=== PATIENT | male | born 1955 | race Caucasian/White ===

== ENCOUNTER 2019-08-12 08:56 | Day surgery (SDC) | payer MEDICARE, OTHER ==
[~2019-08-12 08:56] MED LIST: Lactated Ringers 1,000 ML IV SCH; Lidocaine 2% 5 ML SDV ONE; Propofol 200 MG/20 ML SDV ONE; fentaNYL 100 MCG/2 ML SDV ONE
--- NOTE | 2019-08-12 09:34 | PCM.PREANE ---
Preanesthetic Assessment - Anesthesia/Transfusion/Family Hx Anesthesia History: Prior Anesthesia Without Reaction Family History of Anesthesia Reaction: No Transfusion History: No Prior Transfusion(s) Intubation History: Unknown - Review of Systems General: No Symptoms Pulmonary: No Symptoms Cardiovascular: No Symptoms Gastrointestinal: Constipation, Other (rectal mass) Neurological: No Symptoms Other: Reports: None - Physical Assessment Vital Signs: Last Vital Signs Temp 36.5 C 08/12/19 09:00 Pulse 79 08/12/19 09:00 Resp 18 08/12/19 09:00 BP 126/94 H 08/12/19 09:00 Pulse Ox 97 08/12/19 09:00 Height: 6 ft Weight: 126.552 kg ASA Class: 3 Airway Class: Mallampati = 2 Dentition: Reports: Bridge (upper (left to right - removed)) Thyro-Mental Finger Breadths: 3 Mouth Opening Finger Breadths: 3 ROM/Head Extension: Full Lungs: Clear to Auscultation, Normal Respiratory Effort Cardiovascular: Regular Rate, Irregular Rhythm - Allergies Allergies/Adverse Reactions: Allergies Allergy/AdvReac Type Severity Reaction Status Date / Time shrimp Allergy Hives Verified 08/07/19 13:55 - Blood Blood Available: No - Anesthesia Plan Pre-Op Medication Ordered: None - Acknowledgements Anesthesia Type Planned: MAC Pt an Appropriate Candidate for the Planned Anesthesia: Yes Alternatives and Risks of Anesthesia Discussed w Pt/Guardian: Yes Pt/Guardian Understands and Agrees with Anesthesia Plan: Yes PreAnesthesia Questionnaire HEENT History: Reports: Impaired Vision, Other (See Below) Other HEENT History: top partial, glasses Cardiovascular History: Reports: Afib (cardioversion x4 10 years ago, in [place] [facility] 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: Musculoskeletal History: Reports: Fracture, Osteoarthritis, Other (See Below) Other Musculoskeletal History: hx fx collarbone, hand Neurological History: Reports: None Psychiatric History: Reports: None Endocrine/Metabolic History: Reports: Obesity/BMI 30+ (BMI 37.8) Hematologic History: Reports: None Immunologic History: Reports: None Oncologic (Cancer) History: Reports: None Dermatologic History: Reports: None - Past Surgical History Head Surgeries/Procedures: Reports: None HEENT Surgical History: Reports: Naso-Sinus Surgery, Tonsillectomy Cardiovascular Surgical History: Reports: Other (See Below) Other Cardiovascular Surgeries/Procedures: cardioversion x4 Respiratory Surgical History: Reports: None GI Surgical History: Reports: Appendectomy Female Surgical History: Male Surgical History: Reports: None Endocrine Surgical History: Reports: None Neurological Surgical History: Reports: None Musculoskeletal Surgical History: Reports: Carpal Tunnel, Knee Replacement ( left knee TKR 4 months ago in [facility]) Oncologic Surgical History: Reports: None Dermatological Surgical History: Reports: None - History Comment History Comment: no xarelto sat and saturday - SUBSTANCE USE Smoking Status *Q: Never Smoker Recreational Drug Use History: No - HOME MEDS Home Medications: Home Meds Amiodarone [Cordarone] 200 mg PO DAILY 03/20/19 [History] Rivaroxaban [Xarelto] 20 mg PO DAILY 03/20/19 [History] Triamterene/Hydrochlorothiazid [Triamterene-HCTZ 37.5-25 MG] 1 cap PO DAILY [History] amLODIPine Besylate [Norvasc] 10 mg PO DAILY 03/24/19 [History] Quinapril HCl [Accupril] 40 mg PO BID 08/07/19 [History] - CURRENT (IN HOUSE) MEDS Current Meds: Current Medications Lactated Ringer's (Ringers, Lactated) 1,000 mls @ 125 mls/hr IV ASDIRECTED [facility] Last Admin: 08/12/19 09:27 Dose: 125 mls/hr Discontinued Medications Fentanyl (Sublimaze) Confirm Administered Dose 100 mcg .ROUTE .STK-MED ONE Stop: 08/12/19 08:36 Lidocaine (Xylocaine-Mpf 2%) Confirm Administered Dose 5 ml .ROUTE .STK-MED ONE Stop: 08/12/19 08:36 Propofol (Diprivan 20 Ml) Confirm Administered Dose 400 mg .ROUTE .STK-MED ONE Stop: 08/12/19 08:36
[2019-08-12] MEDS ORDERED: Ampicillin 1 GM in Sodium Chloride 0.9% 50 ML IV ONE ×7 (10:45→11:00)
[2019-08-12] MEDS ORDERED: Propofol 200 MG/20 ML SDV ONE ×2 (12:01→12:25)
--- NOTE | 2019-08-12 12:45 | PCM.OPNOTE ---
- General Post-Op/Procedure Note Date of Surgery/Procedure: 08/12/19 Operative Procedure(s): colonoscopy w snare polypectomy, and tattoo Findings: see [id number] Pre Op Diagnosis: rectal mass Post-Op Diagnosis: Same Anesthesia Technique: Moderate Sedation Primary Surgeon: Sergio Mccauley Pathology: 120 cm when scope went out, 4 mm sessile polyp, removed w cold bx forcept; 10mm rectal polyp, tattoo, probably above 5 cm from anal opening Complications: None Condition: Good
--- NOTE | 2019-08-12 12:57 | PCM.POSTAN ---
POST ANESTHESIA ASSESSMENT - MENTAL STATUS Mental Status: Alert, Oriented - VITAL SIGNS Vital Signs: Last Vital Signs Temp 36.5 C 08/12/19 09:00 Pulse 67 08/12/19 12:49 Resp 12 08/12/19 12:49 BP 133/88 08/12/19 12:49 Pulse Ox 95 08/12/19 12:49 - RESPIRATORY Respiratory Status: Respiratory Rate WNL, Airway Patent, O2 Saturation Stable - CARDIOVASCULAR CV Status: Pulse Rate WNL, Blood Pressure Stable - GASTROINTESTINAL GI Status: No Symptoms - PAIN Pain Score: 0 - POST OP HYDRATION Hydration Status: Adequate & Stable - OBSERVATIONS Free Text/Narrative:: No anesthesia problems
--- NOTE | 2019-08-12 13:18 | PCM48HPAN ---
Post Anesthesia Note - EVALUATION WITHIN 48HRS OF ANESTHETIC Vital Signs in Normal Range: Yes Patient Participated in Evaluation: Yes Respiratory Function Stable: Yes Airway Patent: Yes Cardiovascular Function Stable: Yes Hydration Status Stable: Yes Pain Control Satisfactory: Yes Nausea and Vomiting Control Satisfactory: Yes Mental Status Recovered: Yes Vital Signs: Last Vital Signs Temp 36.2 C 08/12/19 13:03 Pulse 62 08/12/19 13:03 Resp 16 08/12/19 13:03 BP 124/74 08/12/19 13:03 Pulse Ox 95 08/12/19 12:53 - COMMENTS/OBSERVATIONS Free Text/Narrative:: No anesthesia problems
--- NOTE | 2019-08-12 17:46 | OR ---
SURGEON: Sergio Mccauley MD DATE OF PROCEDURE: 08/12/2019 PREOPERATIVE DIAGNOSES: Change in bowel habit and possible rectal mass. POSTOPERATIVE DIAGNOSIS: Colon polyp. PROCEDURE PERFORMED: Colonoscopy with snare polypectomy. DESCRIPTION OF PROCEDURE: The patient was taken to the endoscopy room. A time out was called, patient identified, and procedure identified. Diprivan was then administrated. Patient went from awake to sleep, hearing doctor talking or door closing is normal. Perineum inspection and digital examination were then performed. A well- lubricated colonoscope was gently inserted through the rectum, advanced past the rectosigmoid junction, the descending colon, splenic flexure, transverse colon, hepatic flexure, ascending colon, arrived to the cecum. Cecum was identified as dictated in the finding. Then the scope was carefully withdrawn while attention was paid to the mucosal surface for any abnormality. Air will be sucked out during the scope withdrawal. At the rectum, retroflexed to examine any rectal diseases, fistula or hemorrhoids. During mucosal examination, abnormality or polyp encountered. Using snare equipment, the abnormality or the polyp was then snared off using electrocautery. The patient tolerated procedure well. There were no intraoperative complications, and Dr. Mccauley was present throughout the whole procedure. FINDINGS: 1. The patient is easily sedated with SWEATBAND FLANGER and Diprivan, the patient is soundly snoring. 2. The patient's bowel prep is average to above average, very little liquid stool, no semi-formed stool. 3. The patient's colon rather straightforward. Cecum indicated by ileocecal fold, one-to-one indentation, appendiceal orifice. ScopeGuide is pointing south. Light emittance is not observed because of body habitus. Mucosa examined upon scope pulling out with some irrigation. The patient has a small tiny polyp, about 3 to 4 mm, sessile polyp, at distance 1.2 m while scope pulling out and was removed with cold biopsy forceps. The patient has a semi-moderate size polyp, pedunculated, close to the rectum, probably more than 5 cm from the anal opening, and it was snared and sent for pathology. It is about 10 mm in size, smooth-walled. Other than that, no diverticulosis other mass, growth, inflammation, stricture, ulceration, AV malformation, none of those. The patient has mild internal hemorrhoids, no external hemorrhoids. The patient would benefit from repeat colonoscopy 18 months from today because of the size of the polyp is not too small and the polypectomy site has been tattooed. JAYLENE / ADI /[id number]
== END 2019-08-12 13:25 | disposition home or self-care (01) ==
LOC: MW.SDS 08:56
PROVIDERS: ATTEND Surgery
DX: D12.8 Benign neoplasm of rectum (principal); K64.8 Other hemorrhoids; K63.5 Polyp of colon; I10 Essential (primary) hypertension; E66.9 Obesity, unspecified; E78.00 Pure hypercholesterolemia, unspecified; Z91.09 Other allergy status, other than to drugs and biological substances; Z79.899 Other long term (current) drug therapy; Z79.01 Long term (current) use of anticoagulants; Z90.49 Acquired absence of other specified parts of digestive tract; Z68.37 Body mass index [BMI] 37.0-37.9, adult
CPT/HCPCS: 45380; 45385; 88305; 93005; J0290; J2001; J2704; J3010; J7050; J7120

== ENCOUNTER 2019-08-15 20:42 | Observation (INO) | payer MEDICARE, OTHER ==
[2019-08-15] MEDS ORDERED: Sodium Chloride 0.9% 1,000 ML IV ONE (21:20)
[2019-08-15 21:42] LABS: CARBON DIOXIDE,CO2 28.2 mmol/L (21.0-32.0); POTASSIUM,K 3.6 mmol/L (3.5-5.1)
--- NOTE | 2019-08-16 00:40 | EDM.PDOC ---
ED HPI GENERAL MEDICAL PROBLEM - General Chief Complaint: Gastrointestinal Problem Stated Complaint: bledding in the rectal Time Seen by Provider: 08/15/19 21:04 Source of Information: Reports: Patient History Limitations: Reports: No Limitations - Related Data Allergies Allergy/AdvReac Type Severity Reaction Status Date / Time shrimp Allergy Hives Verified 08/15/19 20:48 Home Meds: Home Meds Amiodarone [Cordarone] 200 mg PO DAILY 03/20/19 [History] Rivaroxaban [Xarelto] 20 mg PO DAILY 03/20/19 [History] Triamterene/Hydrochlorothiazid [Triamterene-HCTZ 37.5-25 MG] 1 cap PO DAILY [History] amLODIPine Besylate [Norvasc] 10 mg PO DAILY 03/24/19 [History] Quinapril HCl [Accupril] 40 mg PO BID 08/07/19 [History] Past Medical History HEENT History: Reports: Impaired Vision, Other (See Below) Other HEENT History: top partial, glasses Cardiovascular History: Reports: Afib, High Cholesterol, Hypertension Respiratory History: Reports: None Gastrointestinal History: Reports: Other (See Below) Other Gastrointestinal History: occasional heartburn 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 History: Reports: 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: Musculoskeletal History: Reports: Fracture, Osteoarthritis, Other (See Below) Other Musculoskeletal History: hx fx collarbone, hand Neurological History: Reports: None Psychiatric History: Reports: None Endocrine/Metabolic History: Reports: Obesity/BMI 30+ Hematologic History: Reports: None Immunologic History: Reports: None Oncologic (Cancer) History: Reports: None Dermatologic History: Reports: None - Infectious Disease History Infectious Disease History: Reports: Chicken Pox, Measles, Mumps - Past Surgical History Head Surgeries/Procedures: Reports: None HEENT Surgical History: Reports: Naso-Sinus Surgery, Tonsillectomy Cardiovascular Surgical History: Reports: Other (See Below) Other Cardiovascular Surgeries/Procedures: cardioversion x4 Respiratory Surgical History: Reports: None GI Surgical History: Reports: Appendectomy Male Surgical History: Reports: None Endocrine Surgical History: Reports: None Neurological Surgical History: Reports: None Musculoskeletal Surgical History: Reports: Carpal Tunnel, Knee Replacement Oncologic Surgical History: Reports: None Dermatological Surgical History: Reports: None - History Comment History Comment: no xarelto sat and saturday Social & Family History - Family History Family Medical History: Noncontributory - Tobacco Use Smoking Status *Q: Never Smoker - Caffeine Use Caffeine Use: Reports: Coffee - Recreational Drug Use Recreational Drug Use: No ED ROS GENERAL - Review of Systems Review Of Systems: See Below ED EXAM, GI/ABD - Physical Exam Exam: See Below Exam Limited By: No Limitations General Appearance: Alert, WD/WN, No Apparent Distress Eyes: Bilateral: Normal Appearance Ears: Normal External Exam, Normal Canal, Hearing Grossly Normal, Normal TMs Nose: Normal Inspection Throat/Mouth: Normal Inspection, Normal Lips Head: Atraumatic Neck: Normal Inspection, Supple, Non-Tender Respiratory/Chest: No Respiratory Distress, Lungs Clear, No Accessory Muscle Use , Chest Non-Tender Cardiovascular: Normal Peripheral Pulses, Regular Rate, Rhythm, No JVD, No Murmur GI/Abdominal Exam: Normal Bowel Sounds, Soft, Non-Tender, No Distention, No Abnormal Bruit (Male) Exam: No Hernia Rectal (Males) Exam: Normal Exam, Normal Rectal Tone, Bloody Stool, Heme + Stool Back Exam: Normal Inspection, Full Range of Motion Extremities: Normal Inspection, Normal Range of Motion, No Pedal Edema, Normal Capillary Refill Neurological: Alert, Oriented, CN II-XII Intact, Normal Cognition, Normal Reflexes, No Motor/Sensory Deficits Psychiatric: Normal Affect, Normal Mood Skin Exam: Warm, Dry, Intact, Normal Color Course - Vital Signs Text/Narrative:: 63-year-old gentleman presents the emergency room with bright red bleeding per rectum. Patient is status post colonoscopy 4 days ago which she had a lesion taken from his descending colon and another polyp taken higher up. Patient states today he had bleeding on every hour. Patient was on Xarelto his just started it again. Patient denies any abdominal ppain. The patient has abdominal pain generalized. Patient has negative tenderness. Patient does have positive rectal exam with blood on the glove minimal. Patient in no distress with good blood pressure and vital signs. Patient had orthostatic vitals done which were negative. I discussed the case with Dr. Mccauley. The patient could be stable for discharge if the patient feels any apprehensive he will keep him in the hospital. After patient had been evaluated and watched for over 2 hours patient's blood pressure remains the same patient hemoglobin has dropped from 15-13. Patient feels that he is not not stable to leave the hospital because his bleeding every other hour. Dr. Mccauley informed of this and will keep the patient in observation Diagnosis 1 acute rectal bleed status post colonoscopy removal of polyps HE will be admitted and monitored in the hospital/observation Last Recorded V/S: Last Vital Signs Temp 96.9 F 08/15/19 20:49 Pulse 89 08/16/19 00:22 Resp 17 08/16/19 00:22 BP 150/94 H 08/16/19 00:22 Pulse Ox 94 L 08/16/19 00:22 Orthostatic Blood Pressure [ 147/83 Standing] Orthostatic Blood Pressure [ 153/88 Sitting] Orthostatic Blood Pressure [ 148/85 Supine] - Orders/Labs/Meds Orders: Active Orders 24 hr Category Date Time Status Orthostatic Vital Signs [RC] ASDIRECTED Care 08/15/19 22:21 Active Labs: Laboratory Tests 08/15/19 08/15/19 08/15/19 Range/Units 21:05 21:05 21:05 WBC 9.36 (4.0-11.0) K/uL RBC 5.46 (4.50-5.90) M/uL Hgb 15.8 (13.0-17.0) g/dL Hct 47.8 (38.0-50.0) % MCV 87.5 (80.0-98.0) fL MCH 28.9 (27.0-32.0) pg MCHC 33.1 (31.0-37.0) g/dL RDW Std Deviation 47.7 (28.0-62.0) fl RDW Coeff of Evaristo 15 (11.0-15.0) % Plt Count 351 (150-400) K/uL MPV 11.10 (7.40-12.00) fL Neut % (Auto) 59.4 (48.0-80.0) % Lymph % (Auto) 28.2 (16.0-40.0) % Reynolds % (Auto) 9.6 (0.0-15.0) % Eos % (Auto) 2.5 (0.0-7.0) % Baso % (Auto) 0.3 (0.0-1.5) % Neut # (Auto) 5.6 (1.4-5.7) K/uL Lymph # (Auto) 2.6 H (0.6-2.4) K/uL Reynolds # (Auto) 0.9 H (0.0-0.8) K/uL Eos # (Auto) 0.2 (0.0-0.7) K/uL Baso # (Auto) 0.0 (0.0-0.1) K/uL Nucleated RBC % 0.0 /100WBC Nucleated RBCs # 0 K/uL INR 1.10 Sodium 144 (136-148) mmol/L Potassium 3.6 (3.5-5.1) mmol/L Chloride 105 (98-107) mmol/L Carbon Dioxide 28.2 (21.0-32.0) mmol/L BUN 15 (7.0-18.0) mg/dL Creatinine 1.7 H (0.8-1.3) mg/dL Est Cr Clr Drug Dosing 47.55 mL/min Estimated GFR (MDRD) 40.7 ml/min Glucose 114 H (74-106) mg/dL Calcium 9.0 (8.5-10.1) mg/dL Total Bilirubin 0.3 (0.2-1.0) mg/dL AST 22 (15-37) IU/L ALT 47 (14-63) IU/L Alkaline Phosphatase 83 (46-116) U/L Total Protein 7.4 (6.4-8.2) g/dL Albumin 3.8 (3.4-5.0) g/dL Globulin 3.6 (2.6-4.0) g/dL Albumin/Globulin Ratio 1.1 (0.9-1.6) 08/15/19 Range/Units 23:43 WBC 9.46 (4.0-11.0) K/uL RBC 4.81 (4.50-5.90) M/uL Hgb 13.8 (13.0-17.0) g/dL Hct 42.5 (38.0-50.0) % MCV 88.4 (80.0-98.0) fL MCH 28.7 (27.0-32.0) pg MCHC 32.5 (31.0-37.0) g/dL RDW Std Deviation 47.9 (28.0-62.0) fl RDW Coeff of Evaristo 15 (11.0-15.0) % Plt Count 303 (150-400) K/uL MPV 10.70 (7.40-12.00) fL Neut % (Auto) 74.8 (48.0-80.0) % Lymph % (Auto) 14.1 L (16.0-40.0) % Reynolds % (Auto) 9.6 (0.0-15.0) % Eos % (Auto) 1.3 (0.0-7.0) % Baso % (Auto) 0.2 (0.0-1.5) % Neut # (Auto) 7.1 H (1.4-5.7) K/uL Lymph # (Auto) 1.3 (0.6-2.4) K/uL Reynolds # (Auto) 0.9 H (0.0-0.8) K/uL Eos # (Auto) 0.1 (0.0-0.7) K/uL Baso # (Auto) 0.0 (0.0-0.1) K/uL Nucleated RBC % 0.0 /100WBC Nucleated RBCs # 0 K/uL INR Sodium (136-148) mmol/L Potassium (3.5-5.1) mmol/L Chloride (98-107) mmol/L Carbon Dioxide (21.0-32.0) mmol/L BUN (7.0-18.0) mg/dL Creatinine (0.8-1.3) mg/dL Est Cr Clr Drug Dosing mL/min Estimated GFR (MDRD) ml/min Glucose (74-106) mg/dL Calcium (8.5-10.1) mg/dL Total Bilirubin (0.2-1.0) mg/dL AST (15-37) IU/L ALT (14-63) IU/L Alkaline Phosphatase (46-116) U/L Total Protein (6.4-8.2) g/dL Albumin (3.4-5.0) g/dL Globulin (2.6-4.0) g/dL Albumin/Globulin Ratio (0.9-1.6) Meds: Medications Discontinued Medications Generic Name Dose Route Start Last Admin Trade Name Freq PRN Reason Stop Dose Admin Sodium Chloride 1,000 mls @ 1,000 mls/hr 08/15/19 21:20 08/15/19 21:33 Normal Saline IV 08/15/19 22:19 1,000 mls/hr .Bolus ONE Administration Departure - Departure Time of Disposition: 00:48 Disposition: Refer to Observation Condition: Good Clinical Impression: Rectal bleeding - Discharge Information Referrals: Blair Palacios MD [Primary Care Provider] - Sepsis Event Note - Evaluation Sepsis Screening Result: No Definite Risk - Focused Exam Vital Signs: Vital Signs Temp Pulse Resp BP Pulse Ox 08/16/19 00:22 89 17 150/94 H 94 L 08/15/19 20:49 96.9 F 91 18 159/93 H 96 Date Exam was Performed: 08/16/19 Time Exam was Performed: 00:35 - My Orders Last 24 Hours: My Active Orders 08/15/19 22:21 Orthostatic Vital Signs [RC] ASDIRECTED - Assessment/Plan Last 24 Hours: My Active Orders 08/15/19 22:21 Orthostatic Vital Signs [RC] ASDIRECTED
[2019-08-16] MEDS: Lactated Ringers 1,000 ML IV SCH ×3 (02:03→21:30)
[2019-08-16] MEDS: Pantoprazole 40 MG in Sodium Chloride 0.9% 10 ML IV SCH ×2 (02:13→08:16)
[2019-08-16] MEDS: amLODIPine 5 MG Tab PO SCH (14:26)
[2019-08-16] MEDS: Amiodarone 200 MG Tab PO SCH (14:26)
[2019-08-16] MEDS: Hydrochlorothiazide/Triamterene 25-37.5 Tab PO SCH (14:26)
--- NOTE | 2019-08-16 19:50 | PCM.SN ---
- Free Text/Narrative Note: admission h/p dictated; [id number]
--- NOTE | 2019-08-17 01:45 | HP ---
DATE OF : 1955 PRIMARY CARE PHYSICIAN: Blair Palacios MD CONSULTING PHYSICIAN: ER doctor, Dr. Silva. CONCERNING QUESTION: Rectal bleeding. HISTORY OF PRESENT ILLNESS: The patient is 63-year-old morbidly obese gentleman, BMI of 39, and 4 days status post colonoscopy with polyp removal, and patient remarked that he was doing fine at home, 3 days later after he started Xarelto he sustained rectal bleeding. Has bled about 3 times, seen in the emergency room, and had drop of H and H from 15.1 to 13.8, and patient was concerned and patient was then admitted for observation. During the whole episode, patient denied abdominal pain, perirectal pain, or nausea and vomiting, or shortness of breath, chest pain, or syncope. PAST MEDICAL HISTORY: Please refer to the admission note by Dr. Silva. PAST SURGICAL HISTORY: Please refer to the admission note by Dr. Silva. ALLERGIES: Please refer to the admission note by Dr. Silva. MEDICATIONS: Please refer to the admission note by Dr. Silva. PHYSICAL EXAMINATION: GENERAL: A very pleasant gentleman, totally asymptomatic and in no acute distress. HEENT: Normocephalic and atraumatic. Sclerae anicteric. LUNGS: Clear to auscultation. HEART: Regular rate and rhythm. ABDOMEN: Soft, nondistended. No pulsating tender midline abdominal structure. IMPRESSION AND PLAN: Bleeding, likely related to Xarelto. The patient has been taking Xarelto, and patient has no systemic features such as hemodynamically unstable and no abdominal pain. The patient has a large rectal polyp 10 mm removed and likely the source of bleeding. The plan will be admit to observation and stop the Xarelto, and do not plan to reverse Xarelto as the patient is taking Xarelto for atrial fibrillation and if we make patient reverse the Xarelto, we will make him increase coagulopathy and increase risk for thromboembolic event. We will treat like a GI bleeding, and 2 large-gauge IV access and straight in and out, and H and H q.12. In the likely event that situation in not kept controlled with stopping Xarelto, patient may need colonoscopy. At the present stage, it does not look like that is likely. We will monitor the situation and stop the Xarelto. JAYLENE / MODL /[id number]
[2019-08-17] MEDS: Lactated Ringers 1,000 ML IV SCH (06:55)
[2019-08-17] MEDS: Hydrochlorothiazide/Triamterene 25-37.5 Tab PO SCH (09:11)
[2019-08-17] MEDS: Amiodarone 200 MG Tab PO SCH (09:11)
[2019-08-17] MEDS: amLODIPine 5 MG Tab PO SCH (09:12)
[2019-08-17] MEDS: Pantoprazole 40 MG in Sodium Chloride 0.9% 10 ML IV SCH (09:12)
--- NOTE | 2019-08-17 09:49 | PCM.SURGPN ---
- General Info Date of Service: 08/17/19 Functional Status: Reports: Pain Controlled (no pain, h/h droped 10.6 to 9.6 in 12 hrs, also received 2.4L saline; Bloody BM X1; last xaralto sat morning.) - Review of Systems General: Reports: No Symptoms Cardiovascular: Reports: No Symptoms Gastrointestinal: Reports: No Symptoms - Patient Data Vitals - Most Recent: Last Vital Signs Temp 97.5 F 08/17/19 07:00 Pulse 61 08/17/19 07:00 Resp 15 08/17/19 07:00 BP 132/75 08/17/19 09:12 Pulse Ox 94 L 08/17/19 07:00 Orthostatic Blood Pressure [ 147/83 Standing] Orthostatic Blood Pressure [ 153/88 Sitting] Orthostatic Blood Pressure [ 148/85 Supine] Weight - Most Recent: 287 lb I&O - Last 24 Hours: Intake & Output 08/16/19 08/17/19 08/17/19 22:59 06:59 14:59 Intake Total 1040 200 Output Total 400 750 Balance 640 -550 Lab Results Last 24 Hrs: Laboratory Results - last 24 hr 08/16/19 08/17/19 Range/Units 18:07 05:45 Hgb 10.9 L 9.6 L (13.0-17.0) g/dL Hct 34.2 L 30.5 L (38.0-50.0) % Med Orders - Current: Current Medications Amiodarone HCl (Cordarone) 200 mg PO DAILY [facility] Last Admin: 08/17/19 09:11 Dose: 200 mg Amlodipine Besylate (Norvasc) 10 mg PO DAILY [facility] Last Admin: 08/17/19 09:12 Dose: 10 mg Lactated Ringer's (Ringers, Lactated) 1,000 mls @ 100 mls/hr IV ASDIRECTED [facility] Last Admin: 08/17/19 06:55 Dose: 100 mls/hr Pantoprazole Sodium 40 mg/ (Sodium Chloride) 10 mls @ 300 mls/hr IV DAILY [facility] Last Admin: 08/17/19 09:12 Dose: 300 mls/hr Quinapril HCl (Accupril) 40 mg PO BID [facility] Last Admin: 08/17/19 09:10 Dose: 40 mg Triamterene/HCTZ (Maxzide 25-37.5 Mg) 1 each PO DAILY [facility] Last Admin: 08/17/19 09:11 Dose: 1 each Discontinued Medications Sodium Chloride (Normal Saline) 1,000 mls @ 1,000 mls/hr IV .Bolus ONE Stop: 08/15/19 22:19 Last Admin: 08/15/19 21:33 Dose: 1,000 mls/hr - Exam General: Alert, Oriented GI/Abdominal Exam: Soft, Non-Tender Sepsis Event Note - Evaluation Sepsis Screening Result: No Definite Risk - Focused Exam Vital Signs: Vital Signs Temp Pulse Resp BP BP Pulse Ox 08/17/19 09:12 132/75 08/17/19 07:00 97.5 F 61 15 132/75 94 L 08/17/19 04:00 98.0 F 77 15 129/86 97 08/17/19 00:00 97.7 F 62 16 117/70 96 Date Exam was Performed: 08/17/19 Time Exam was Performed: 09:44 - Problem List Review Problem List Initiated/Reviewed/Updated: Yes - My Orders Last 24 Hours: Active Orders 24 hr Category Date Time Status Full Liquid Diet [DIET] Diet 08/17/19 Breakfast Active HEMOGLOBIN/HEMATOCRIT,HH [HEME] Q12H Lab 08/17/19 18:00 Ordered Amiodarone [Cordarone] Med 08/16/19 13:45 Active 200 mg PO DAILY HCTZ/Triamterene [Maxzide 25-37.5 MG] Med 08/16/19 13:45 Active 1 each PO DAILY Quinapril [AccupriL] Med 08/16/19 13:45 Active 40 mg PO BID amLODIPine [Norvasc] Med 08/16/19 13:45 Active 10 mg PO DAILY Medication Orders Amiodarone HCl (Cordarone) 200 mg PO DAILY [facility] Last Admin: 08/17/19 09:11 Dose: 200 mg Admin: 08/16/19 14:26 Dose: 200 mg Amlodipine Besylate (Norvasc) 10 mg PO DAILY [facility] Last Admin: 08/17/19 09:12 Dose: 10 mg Admin: 08/16/19 14:26 Dose: 10 mg Lactated Ringer's (Ringers, Lactated) 1,000 mls @ 100 mls/hr IV ASDIRECTED [facility] Last Admin: 08/17/19 06:55 Dose: 100 mls/hr Infusion: 08/17/19 06:55 Dose: 100 mls/hr Admin: 08/16/19 21:30 Dose: 100 mls/hr Infusion: 08/16/19 21:25 Dose: 100 mls/hr Admin: 08/16/19 11:25 Dose: 100 mls/hr Infusion: 08/16/19 11:25 Dose: 100 mls/hr Admin: 08/16/19 02:03 Dose: 100 mls/hr Pantoprazole Sodium 40 mg/ (Sodium Chloride) 10 mls @ 300 mls/hr IV DAILY [facility] Last Admin: 08/17/19 09:12 Dose: 300 mls/hr Infusion: 08/16/19 08:18 Dose: 300 mls/hr Admin: 08/16/19 08:16 Dose: 300 mls/hr Infusion: 08/16/19 02:15 Dose: 300 mls/hr Admin: 08/16/19 02:13 Dose: 300 mls/hr Quinapril HCl (Accupril) 40 mg PO BID [facility] Last Admin: 08/17/19 09:10 Dose: 40 mg Admin: 08/16/19 21:24 Dose: 40 mg Admin: 08/16/19 14:26 Dose: 40 mg Triamterene/HCTZ (Maxzide 25-37.5 Mg) 1 each PO DAILY [facility] Last Admin: 08/17/19 09:11 Dose: 1 each Admin: 08/16/19 14:26 Dose: 1 each - Assessment Assessment (Free Text/Narrative):: doing good, hungry; denied chest pain/sob; heplock IV, start full liquid diet; check h/h in the morning - Plan Plan (Free Text/Narrative):: doing good, hungry; denied chest pain/sob; heplock IV, start full liquid diet; check h/h in the morning
[2019-08-18] MEDS: Hydrochlorothiazide/Triamterene 25-37.5 Tab PO SCH (09:31)
[2019-08-18] MEDS: amLODIPine 5 MG Tab PO SCH (09:31)
[2019-08-18] MEDS: Amiodarone 200 MG Tab PO SCH (09:31)
[2019-08-18] MEDS: Pantoprazole 40 MG in Sodium Chloride 0.9% 10 ML IV SCH (09:32)
--- NOTE | 2019-08-18 21:42 | PCM.SURGPN ---
- General Info Date of Service: 08/18/19 Functional Status: Reports: Pain Controlled - Review of Systems General: Reports: No Symptoms (one BM, maroon color, no clots; denied sob/chest pain) - Patient Data Vitals - Most Recent: Last Vital Signs Temp 97.6 F 08/18/19 16:00 Pulse 73 08/18/19 16:00 Resp 16 08/18/19 16:00 BP 127/77 08/18/19 16:00 Pulse Ox 98 08/18/19 16:00 Orthostatic Blood Pressure [ 147/83 Standing] Orthostatic Blood Pressure [ 153/88 Sitting] Orthostatic Blood Pressure [ 148/85 Supine] Weight - Most Recent: 287 lb I&O - Last 24 Hours: Intake & Output 08/18/19 08/18/19 08/18/19 06:59 14:59 22:59 Intake Total 1000 700 200 Output Total 750 800 300 Balance 250 -100 -100 Lab Results Last 24 Hrs: Laboratory Results - last 24 hr 08/18/19 Range/Units 06:11 Hgb 10.2 L (13.0-17.0) g/dL Hct 31.5 L (38.0-50.0) % Med Orders - Current: Current Medications Amiodarone HCl (Cordarone) 200 mg PO DAILY [facility] Last Admin: 08/18/19 09:31 Dose: 200 mg Amlodipine Besylate (Norvasc) 10 mg PO DAILY [facility] Last Admin: 08/18/19 09:31 Dose: 10 mg Pantoprazole Sodium 40 mg/ (Sodium Chloride) 10 mls @ 300 mls/hr IV DAILY [facility] Last Admin: 08/18/19 09:32 Dose: 300 mls/hr Quinapril HCl (Accupril) 40 mg PO BID [facility] Last Admin: 08/18/19 20:31 Dose: 40 mg Triamterene/HCTZ (Maxzide 25-37.5 Mg) 1 each PO DAILY [facility] Last Admin: 08/18/19 09:31 Dose: 1 each Discontinued Medications Sodium Chloride (Normal Saline) 1,000 mls @ 1,000 mls/hr IV .Bolus ONE Stop: 08/15/19 22:19 Last Admin: 08/15/19 21:33 Dose: 1,000 mls/hr Lactated Ringer's (Ringers, Lactated) 1,000 mls @ 100 mls/hr IV ASDIRECTED [facility] Last Admin: 08/17/19 06:55 Dose: 100 mls/hr - Exam GI/Abdominal Exam: Normal Bowel Sounds, Soft Sepsis Event Note - Evaluation Sepsis Screening Result: No Definite Risk - Focused Exam Vital Signs: Vital Signs Temp Pulse Resp BP Pulse Ox 08/18/19 16:00 97.6 F 73 16 127/77 98 08/18/19 11:00 98.3 F 77 16 109/68 94 L Date Exam was Performed: 08/18/19 Time Exam was Performed: 21:42 - Problem List Review Problem List Initiated/Reviewed/Updated: Yes - My Orders Last 24 Hours: Active Orders 24 hr Category Date Time Status Regular Diet [DIET] Diet 08/18/19 Breakfast Active Medication Orders Amiodarone HCl (Cordarone) 200 mg PO DAILY [facility] Last Admin: 08/18/19 09:31 Dose: 200 mg Admin: 08/17/19 09:11 Dose: 200 mg Admin: 08/16/19 14:26 Dose: 200 mg Amlodipine Besylate (Norvasc) 10 mg PO DAILY [facility] Last Admin: 08/18/19 09:31 Dose: 10 mg Admin: 08/17/19 09:12 Dose: 10 mg Admin: 08/16/19 14:26 Dose: 10 mg Pantoprazole Sodium 40 mg/ (Sodium Chloride) 10 mls @ 300 mls/hr IV DAILY [facility] Last Admin: 08/18/19 09:32 Dose: 300 mls/hr Infusion: 08/17/19 09:14 Dose: 300 mls/hr Admin: 08/17/19 09:12 Dose: 300 mls/hr Infusion: 08/16/19 08:18 Dose: 300 mls/hr Admin: 08/16/19 08:16 Dose: 300 mls/hr Infusion: 08/16/19 02:15 Dose: 300 mls/hr Admin: 08/16/19 02:13 Dose: 300 mls/hr Quinapril HCl (Accupril) 40 mg PO BID [facility] Last Admin: 08/18/19 20:31 Dose: 40 mg Admin: 08/18/19 09:31 Dose: 40 mg Admin: 08/17/19 20:42 Dose: 40 mg Admin: 08/17/19 09:10 Dose: 40 mg Admin: 08/16/19 21:24 Dose: 40 mg Admin: 08/16/19 14:26 Dose: 40 mg Triamterene/HCTZ (Maxzide 25-37.5 Mg) 1 each PO DAILY [facility] Last Admin: 08/18/19 09:31 Dose: 1 each Admin: 08/17/19 09:11 Dose: 1 each Admin: 08/16/19 14:26 Dose: 1 each - Assessment Assessment (Free Text/Narrative):: resolving gib, start reg po diet; stop ivf; likely home in AM; h/h stable X 36 hrs 9.4, 9.8, 10.2 - Plan Plan (Free Text/Narrative):: resolving gib, start reg po diet; stop ivf; likely home in AM
[2019-08-19] MEDS: Pantoprazole 40 MG in Sodium Chloride 0.9% 10 ML IV SCH (08:57)
[2019-08-19] MEDS: amLODIPine 5 MG Tab PO SCH (09:20)
[2019-08-19] MEDS: Hydrochlorothiazide/Triamterene 25-37.5 Tab PO SCH (09:20)
[2019-08-19] MEDS: Amiodarone 200 MG Tab PO SCH (09:20)
--- NOTE | 2019-08-19 10:58 | PCM.DCSUM1 ---
Discharge Summary - Hospital Course Brief History: pt s/p large rectal polyp removal pod#3 co BRBPR; denied trauma/n /v/abd pain/SOB/chest pain/syncope; seen at ED, h/h dropped 2 gram, admitted for further management Diagnosis: Stroke: No - Discharge Data Discharge Date: 08/19/19 Discharge Disposition: Home, Self-Care 01 Condition: Good - Referral to Home Health Primary Care Physician: Blair Palacios MD - Patient Summary/Data Hospital Course: pt was admitted to med/surg; npo, ivf; stopped xaralto; pt on xaralto because hx of afib; currently pt is sinus; h/h > 15 > 13 > 10 > 9 > 9 >10; pt was discharged.upon discharge pt tolerated regular diet, BM normal in appearance, well formed; home, keep follow up appointment; restart xaralto 1 wk from today, resume all meds except xaralto - Patient Instructions Diet: Regular Diet as Tolerated Activity: No Strenuous Activities Driving: Do Not Drive Showering/Bathing: May Shower Notify Provider of: Fever, Nausea and/or Vomiting - Discharge Plan Home Medications: Home Meds Amiodarone [Cordarone] 200 mg PO DAILY 03/20/19 [History] Rivaroxaban [Xarelto] 20 mg PO DAILY 03/20/19 [History] Triamterene/Hydrochlorothiazid [Triamterene-HCTZ 37.5-25 MG] 1 cap PO DAILY [History] amLODIPine Besylate [Norvasc] 10 mg PO DAILY 03/24/19 [History] Quinapril HCl [Accupril] 40 mg PO BID 08/07/19 [History] Patient Handouts: Rivaroxaban oral tablets, Colonoscopy, Adult, Care After, [id number] Referrals: Sergio Mccauley MD [Physician] - 08/31/19 9:15 am Blair Palacios MD [Primary Care Provider] - 08/27/19 8:30 am - Discharge Summary/Plan Comment DC Time >30 min.: Yes - Patient Data Vitals - Most Recent: Last Vital Signs Temp 97.4 F 08/19/19 08:00 Pulse 63 08/19/19 08:00 Resp 17 08/19/19 08:00 BP 121/72 08/19/19 09:20 Pulse Ox 95 08/19/19 08:00 Orthostatic Blood Pressure [ 147/83 Standing] Orthostatic Blood Pressure [ 153/88 Sitting] Orthostatic Blood Pressure [ 148/85 Supine] Weight - Most Recent: 287 lb I&O - Last 24 hours: Intake & Output 08/18/19 08/19/19 08/19/19 22:59 06:59 14:59 Intake Total 850 200 Output Total 900 300 Balance -50 -100 Med Orders - Current: Current Medications Amiodarone HCl (Cordarone) 200 mg PO DAILY [facility] Last Admin: 08/19/19 09:20 Dose: 200 mg Amlodipine Besylate (Norvasc) 10 mg PO DAILY [facility] Last Admin: 08/19/19 09:20 Dose: 10 mg Pantoprazole Sodium 40 mg/ (Sodium Chloride) 10 mls @ 300 mls/hr IV DAILY [facility] Last Admin: 08/19/19 08:57 Dose: 300 mls/hr Quinapril HCl (Accupril) 40 mg PO BID [facility] Last Admin: 08/19/19 09:19 Dose: 40 mg Triamterene/HCTZ (Maxzide 25-37.5 Mg) 1 each PO DAILY [facility] Last Admin: 08/19/19 09:20 Dose: 1 each Discontinued Medications Sodium Chloride (Normal Saline) 1,000 mls @ 1,000 mls/hr IV .Bolus ONE Stop: 08/15/19 22:19 Last Admin: 08/15/19 21:33 Dose: 1,000 mls/hr Lactated Ringer's (Ringers, Lactated) 1,000 mls @ 100 mls/hr IV ASDIRECTED [facility] Last Admin: 08/17/19 06:55 Dose: 100 mls/hr
== END 2019-08-19 11:45 | disposition home or self-care (01) ==
LOC: MW.ED 20:42 → MW.MS 08-16 00:50
PROVIDERS: ADMIT Surgery; ATTEND Surgery
DX: K62.5 Hemorrhage of anus and rectum (principal); I10 Essential (primary) hypertension; E66.01 Morbid (severe) obesity due to excess calories; Z90.49 Acquired absence of other specified parts of digestive tract; Z98.890 Other specified postprocedural states; Z91.013 Allergy to seafood; Z79.899 Other long term (current) drug therapy; Z68.39 Body mass index [BMI] 39.0-39.9, adult
CPT/HCPCS: 36415; 80053; 85014; 85018; 85025; 85610; 86850; 86900; 86901; 96360; 96361; 99284; A9270; C9113; G0378; J7030; J7050; J7120; 99283

== ENCOUNTER 2019-08-21 11:32 | Observation (INO) | payer MEDICARE, OTHER ==
[2019-08-21] MEDS ORDERED: Sodium Chloride 0.9% 1,000 ML IV ONE ×2 (11:51→14:47)
[2019-08-21 12:18] LABS: BLOOD UREA NITROGEN,BUN 17 mg/dL (7.0-18.0); CARBON DIOXIDE,CO2 25.4 mmol/L (21.0-32.0); CHLORIDE,CL 105 mmol/L (98-107); GLUCOSE RANDOM 105 mg/dL (74-106); POTASSIUM,K 3.4 mmol/L (3.5-5.1); SODIUM,NA 142 mmol/L (136-148)
--- NOTE | 2019-08-21 12:28 | CR ---
Chest: Portable view of the chest is obtained. Comparison: No prior chest x-rays available, prior chest CT of 11/17/07. Heart size is felt to be slightly enlarged. Upper mediastinum is within normal limits. Lungs are clear with no acute parenchymal change. Deformity of the left clavicle is seen from old healed clavicle fracture. Impression: 1. Findings as noted above. 2. Nothing acute is appreciated. Diagnostic code #2 This report was dictated in MDT
--- NOTE | 2019-08-21 12:47 | EDM.PDOC ---
ED HPI GENERAL MEDICAL PROBLEM - General Chief Complaint: Syncope Stated Complaint: DIZZY Time Seen by Provider: 08/21/19 12:05 Source of Information: Reports: Patient History Limitations: Reports: No Limitations - History of Present Illness INITIAL COMMENTS - FREE TEXT/NARRATIVE: This 63 year old male is admitted to the ED with a chief complaint of almost passing out earlier today. He states that before the episode of passing out he was very dizzy especially when turning his head (left or right). He denies any chest pain or SOB. He denies any visual symptoms. he denies any other symptoms. Onset: Today Associated Symptoms: Reports: Syncope (near syncope). Denies: Chest Pain, Cough , Diaphoresis, Fever/Chills, Headaches, Nausea/Vomiting, Shortness of Breath - Related Data Allergies Allergy/AdvReac Type Severity Reaction Status Date / Time shrimp Allergy Hives Verified 08/21/19 11:35 Home Meds: Home Meds Amiodarone [Cordarone] 400 mg PO DAILY 03/20/19 [History] Triamterene/Hydrochlorothiazid [Triamterene-HCTZ 37.5-25 MG] 1 cap PO DAILY [History] amLODIPine Besylate [Norvasc] 10 mg PO DAILY 03/24/19 [History] Quinapril HCl [Accupril] 40 mg PO BID 08/07/19 [History] Past Medical History HEENT History: Reports: Impaired Vision, Other (See Below) Other HEENT History: top partial, glasses Cardiovascular History: Reports: Afib, High Cholesterol, Hypertension Respiratory History: Reports: None Gastrointestinal History: Reports: Other (See Below) Other Gastrointestinal History: occasional heartburn 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 History: Reports: None [employer] History: Musculoskeletal History: Reports: Fracture, Osteoarthritis, Other (See Below) Other Musculoskeletal History: hx fx collarbone, hand Neurological History: Reports: None Psychiatric History: Reports: None Endocrine/Metabolic History: Reports: Obesity/BMI 30+ Hematologic History: Reports: None Immunologic History: Reports: None Oncologic (Cancer) History: Reports: None Dermatologic History: Reports: None - Infectious Disease History Infectious Disease History: Reports: Chicken Pox, Measles, Mumps - Past Surgical History Head Surgeries/Procedures: Reports: None HEENT Surgical History: Reports: Naso-Sinus Surgery, Tonsillectomy Cardiovascular Surgical History: Reports: Other (See Below) Other Cardiovascular Surgeries/Procedures: cardioversion x4 Respiratory Surgical History: Reports: None GI Surgical History: Reports: Appendectomy Other GI Surgeries/Procedures: GI Bleed- Recent Male Surgical History: Reports: None Endocrine Surgical History: Reports: None Neurological Surgical History: Reports: None Musculoskeletal Surgical History: Reports: Carpal Tunnel, Knee Replacement Oncologic Surgical History: Reports: None Dermatological Surgical History: Reports: None - History Comment History Comment: no xarelto sat and saturday Social & Family History - Family History Family Medical History: Noncontributory - Tobacco Use Smoking Status *Q: Never Smoker - Caffeine Use Caffeine Use: Reports: Coffee - Recreational Drug Use Recreational Drug Use: No ED ROS GENERAL - Review of Systems Review Of Systems: See Below Constitutional: Reports: No Symptoms HEENT: Reports: No Symptoms Respiratory: Reports: No Symptoms Cardiovascular: Reports: No Symptoms Endocrine: Reports: No Symptoms GI/Abdominal: Reports: No Symptoms : Reports: No Symptoms Musculoskeletal: Reports: No Symptoms Skin: Reports: No Symptoms Neurological: Reports: Dizziness, Syncope (near syncope). Denies: Difficulty Walking, Weakness, Change in Speech, Gait Disturbance Psychiatric: Reports: No Symptoms - Physical Exam Exam: See Below Exam Limited By: No Limitations General Appearance: Alert, WD/WN, No Apparent Distress Ears: Normal External Exam, Normal Canal, Hearing Grossly Normal, Normal TMs Nose: Normal Inspection, Normal Mucosa, No Blood Throat/Mouth: Normal Inspection, Normal Lips, Normal Teeth, Normal Gums, Normal Oropharynx, Normal Voice, No Airway Compromise Head Exam: Atraumatic, Normocephalic Neck: Normal Inspection, Supple, Non-Tender, Full Range of Motion Respiratory/Chest: No Respiratory Distress, Lungs Clear, Normal Breath Sounds, No Accessory Muscle Use, Chest Non-Tender Cardiovascular: Normal Peripheral Pulses, Regular Rate, Rhythm, No Edema, No Gallop, No JVD, No Murmur, No Rub GI/Abdominal: Normal Bowel Sounds, Soft, Non-Tender, No Organomegaly, No Distention, No Abnormal Bruit, No Mass, Other (abdomen) (Male) Exam: Deferred Rectal (Males) Exam: Deferred Neuro Exam (Abbreviated): Alert, Oriented (times 4), CN II-XII Intact, Normal Cognition, Normal Reflexes, No Motor/Sensory Deficits DTR: 2+: Bicep (R), 3+: Bicep (L), Patella (R), Patella (L), Achilles (R), Achilles (L) Back Exam: Normal Inspection, Full Range of Motion Extremities: Normal Inspection, Normal Range of Motion, Non-Tender, No Pedal Edema, Normal Capillary Refill Psychiatric: Normal Affect, Normal Mood Skin Exam: Warm, Dry, Intact, Normal Color, No Rash Course - Vital Signs Text/Narrative:: I talked with Dr. Phillips the Resident of Dr. Tavarez. I went over his labs and ct of the head. He will be admitted to OBS/TELE. He agrees with the admission plan. Last Recorded V/S: Last Vital Signs Temp 96.9 F 08/21/19 11:37 Pulse 61 08/21/19 13:57 Resp 18 08/21/19 11:59 BP 121/79 08/21/19 13:57 Pulse Ox 100 08/21/19 12:43 - Orders/Labs/Meds Orders: Active Orders 24 hr Category Date Time Status EKG Documentation Completion [RC] STAT Care 08/21/19 11:50 Active Labs: Laboratory Tests 08/21/19 08/21/19 Range/Units 11:40 11:40 WBC 14.38 H (4.0-11.0) K/uL RBC 3.92 L (4.50-5.90) M/uL Hgb 11.1 L (13.0-17.0) g/dL Hct 34.5 L (38.0-50.0) % MCV 88.0 (80.0-98.0) fL MCH 28.3 (27.0-32.0) pg MCHC 32.2 (31.0-37.0) g/dL RDW Std Deviation 48.8 (28.0-62.0) fl RDW Coeff of Evaristo 15 (11.0-15.0) % Plt Count 445 H (150-400) K/uL MPV 10.70 (7.40-12.00) fL Neut % (Auto) 76.1 (48.0-80.0) % Lymph % (Auto) 12.3 L (16.0-40.0) % Moore % (Auto) 10.3 (0.0-15.0) % Eos % (Auto) 1.1 (0.0-7.0) % Baso % (Auto) 0.2 (0.0-1.5) % Neut # (Auto) 10.9 H (1.4-5.7) K/uL Lymph # (Auto) 1.8 (0.6-2.4) K/uL Moore # (Auto) 1.5 H (0.0-0.8) K/uL Eos # (Auto) 0.2 (0.0-0.7) K/uL Baso # (Auto) 0.0 (0.0-0.1) K/uL Nucleated RBC % 0.0 /100WBC Nucleated RBCs # 0 K/uL Sodium 142 (136-148) mmol/L Potassium 3.4 L (3.5-5.1) mmol/L Chloride 105 (98-107) mmol/L Carbon Dioxide 25.4 (21.0-32.0) mmol/L BUN 17 (7.0-18.0) mg/dL Creatinine 1.4 H (0.8-1.3) mg/dL Est Cr Clr Drug Dosing 57.74 mL/min Estimated GFR (MDRD) 50.9 ml/min Glucose 105 (74-106) mg/dL Calcium 9.1 (8.5-10.1) mg/dL Magnesium 2.1 (1.8-2.4) mg/dL Total Bilirubin 0.4 (0.2-1.0) mg/dL AST 19 (15-37) IU/L ALT 49 (14-63) IU/L Alkaline Phosphatase 72 (46-116) U/L Troponin I < 0.050 (0.000-0.056) ng/mL Total Protein 7.2 (6.4-8.2) g/dL Albumin 3.8 (3.4-5.0) g/dL Globulin 3.4 (2.6-4.0) g/dL Albumin/Globulin Ratio 1.1 (0.9-1.6) Meds: Medications Discontinued Medications Generic Name Dose Route Start Last Admin Trade Name Freq PRN Reason Stop Dose Admin Sodium Chloride 1,000 mls @ 999 mls/hr 08/21/19 11:51 08/21/19 11:58 Normal Saline IV 08/21/19 12:51 999 mls/hr .Bolus ONE Administration Departure - Departure Time of Disposition: 14:07 Disposition: Refer to Observation Condition: Fair Clinical Impression: Near syncope - Discharge Information *PRESCRIPTION DRUG MONITORING PROGRAM REVIEWED*: Yes *COPY OF PRESCRIPTION DRUG MONITORING REPORT IN PATIENT TRISHA: Yes Referrals: PCP,Unobtain [Primary Care Provider] - Forms: ED Department Discharge Sepsis Event Note - Evaluation Sepsis Screening Result: No Definite Risk - Focused Exam Vital Signs: Vital Signs Temp Pulse Resp BP Pulse Ox 08/21/19 13:57 61 121/79 08/21/19 12:43 100 100 08/21/19 11:59 82 18 146/98 H 100 08/21/19 11:37 96.9 F 84 18 188/101 H 99 Date Exam was Performed: 08/21/19 Time Exam was Performed: 14:05 - My Orders Last 24 Hours: My Active Orders 08/21/19 11:50 EKG Documentation Completion [RC] STAT - Assessment/Plan Last 24 Hours: My Active Orders 08/21/19 11:50 EKG Documentation Completion [RC] STAT
--- NOTE | 2019-08-21 13:37 | CT ---
Head CT Technique: Multiple axial sections through the brain were obtained. Intravenous contrast was not utilized. Comparison: No prior intracranial imaging is available. Findings: Ventricles along with basal cisterns and sulci over the convexities are within normal limits for the patient's age. No abnormal parenchymal densities are seen. No evidence of intracranial hemorrhage. No midline shift or mass-effect is seen. Bone window settings were reviewed. Visualized mastoid sinuses and visualized paranasal sinuses show nothing acute. No acute calvarial abnormality is appreciated. Impression: 1. Nothing acute is identified on noncontrast head CT exam. Diagnostic code #2 This report was dictated in MDT
[2019-08-21] MEDS ORDERED: Ondansetron 4 MG/2 ML SDV IVPUSH PRN (14:44)
[2019-08-21] MEDS ORDERED: Ondansetron 4 MG Tab.DIS PO PRN (14:44)
[2019-08-21] MEDS ORDERED: Acetaminophen 325 MG Tab PO PRN (14:44)
[2019-08-21 15:20] LABS: HEMOGLOBIN A1C 5.7 % (4.5-6.2)
--- NOTE | 2019-08-21 16:27 | PCM.HP.2 ---
H&P History of Present Illness - General Date of Service: 08/21/19 Admit Problem/Dx: Admission Diagnosis/Problem Admission Diagnosis/Problem Near syncope Source of Information: Patient History Limitations: Reports: No Limitations - History of Present Illness Initial Comments - Free Text/Narative: 63-year-old male presents with near-syncope that started earlier this morning while he was working around his house. He has a PMH of HTN, hyperlipidemia and atrial fibrillation. Patient reports this morning he felt as if "the room was closing in on me." He denied any LOC or sensation of room spinning. He has also had generalized weakness today. Of note, patient was recently discharged from hospital on 08/18/19 after being admitted for GI bleed. Patient had a a colonoscopy 1 week prior. During the colonoscopy a large polyp was removed and patient immediately restarted his Xarelto and began having large amounts of blood with his bowel movements. During this hospital admission, his Xarelto was held, and his hemoglobin remained stable and he started having less bleeding in his stool. Patient reports that since being discharged on 08/18/19, he has only noticed scant amount of blood with his bowel movements but overall has been improving. He was instructed not to resume his Xarelto until 08/26/19. Patient denied any fevers, chills, sore throat, cough, SOB, chest pain, n/v/d, abdominal pain, blood in urine, numbness or tingling in extremities. He reports not having much to eat today but his appetite was normal for the past few days. In the ER, WBC count was 14 and hgb was 11.1. Troponin was negative. CXR was negative. CT head was negative. Patient admitted for further evaluation and treatment. - Related Data Allergies/Adverse Reactions: Allergies Allergy/AdvReac Type Severity Reaction Status Date / Time shrimp Allergy Hives Verified 08/21/19 11:35 Home Medications: Home Meds Amiodarone [Cordarone] 400 mg PO DAILY 03/20/19 [History] Triamterene/Hydrochlorothiazid [Triamterene-HCTZ 37.5-25 MG] 1 cap PO DAILY [History] amLODIPine Besylate [Norvasc] 10 mg PO DAILY 03/24/19 [History] Quinapril HCl [Accupril] 40 mg PO BID 08/07/19 [History] Past Medical History HEENT History: Reports: Impaired Vision, Other (See Below) Other HEENT History: top partial, glasses Cardiovascular History: Reports: Afib, High Cholesterol, Hypertension Respiratory History: Reports: None Gastrointestinal History: Reports: Other (See Below) Other Gastrointestinal History: occasional heartburn 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 History: Reports: None [employer] History: Musculoskeletal History: Reports: Fracture, Osteoarthritis, Other (See Below) Other Musculoskeletal History: hx fx collarbone, hand Neurological History: Reports: None Psychiatric History: Reports: None Endocrine/Metabolic History: Reports: Obesity/BMI 30+ Hematologic History: Reports: None Immunologic History: Reports: None Oncologic (Cancer) History: Reports: None Dermatologic History: Reports: None - Infectious Disease History Infectious Disease History: Reports: Chicken Pox, Measles, Mumps - Past Surgical History Head Surgeries/Procedures: Reports: None HEENT Surgical History: Reports: Naso-Sinus Surgery, Tonsillectomy Cardiovascular Surgical History: Reports: Other (See Below) Other Cardiovascular Surgeries/Procedures: cardioversion x4 Respiratory Surgical History: Reports: None GI Surgical History: Reports: Appendectomy Other GI Surgeries/Procedures: GI Bleed- Recent Male Surgical History: Reports: None Endocrine Surgical History: Reports: None Neurological Surgical History: Reports: None Musculoskeletal Surgical History: Reports: Carpal Tunnel, Knee Replacement Oncologic Surgical History: Reports: None Dermatological Surgical History: Reports: None - History Comment History Comment: no xarelto sat and saturday Social & Family History - Family History Family Medical History: Noncontributory - Tobacco Use Smoking Status *Q: Never Smoker - Caffeine Use Caffeine Use: Reports: Coffee - Recreational Drug Use Recreational Drug Use: No H&P Review of Systems - Review of Systems: Review Of Systems: Comprehensive ROS is negative, except as noted in HPI. Exam - Exam Exam: See Below - Vital Signs Vital Signs: Last Vital Signs Temp 96.9 F 08/21/19 11:37 Pulse 75 08/21/19 15:00 Resp 16 08/21/19 15:00 BP 150/100 H 08/21/19 16:09 Pulse Ox 100 08/21/19 15:00 Weight: 275 lb - Exam General: Alert, Oriented, Cooperative, Other (NAD) HEENT: Conjunctiva Clear, EOMI, Hearing Intact, Posterior Pharynx Clear, Pupils Equal, Pupils Reactive Neck: Supple, Trachea Midline Lungs: Clear to Auscultation, Normal Respiratory Effort Cardiovascular: Regular Rate, Irregular Rhythm GI/Abdominal Exam: Normal Bowel Sounds, Soft, Non-Tender, No Distention Extremities: Normal Inspection, No Pedal Edema Peripheral Pulses: 2+: Radial (L), Radial (R) Skin: Warm, Dry, Intact Neurological: Cranial Nerves Intact, Strength Equal Bilateral, Normal Speech, Normal Tone Neuro Extensive - Mental Status: Alert, Oriented x3, Normal Mood/Affect Psychiatric: Alert, Normal Affect, Normal Mood - Patient Data Lab Results Last 24 hrs: Laboratory Results - last 24 hr 08/21/19 08/21/19 08/21/19 Range/Units 11:40 11:40 11:40 WBC 14.38 H (4.0-11.0) K/uL RBC 3.92 L (4.50-5.90) M/uL Hgb 11.1 L (13.0-17.0) g/dL Hct 34.5 L (38.0-50.0) % MCV 88.0 (80.0-98.0) fL MCH 28.3 (27.0-32.0) pg MCHC 32.2 (31.0-37.0) g/dL RDW Std Deviation 48.8 (28.0-62.0) fl RDW Coeff of Evaristo 15 (11.0-15.0) % Plt Count 445 H (150-400) K/uL MPV 10.70 (7.40-12.00) fL Neut % (Auto) 76.1 (48.0-80.0) % Lymph % (Auto) 12.3 L (16.0-40.0) % [place] % (Auto) 10.3 (0.0-15.0) % Eos % (Auto) 1.1 (0.0-7.0) % Baso % (Auto) 0.2 (0.0-1.5) % Neut # (Auto) 10.9 H (1.4-5.7) K/uL Lymph # (Auto) 1.8 (0.6-2.4) K/uL [place] # (Auto) 1.5 H (0.0-0.8) K/uL Eos # (Auto) 0.2 (0.0-0.7) K/uL Baso # (Auto) 0.0 (0.0-0.1) K/uL Nucleated RBC % 0.0 /100WBC Nucleated RBCs # 0 K/uL Sodium 142 (136-148) mmol/L Potassium 3.4 L (3.5-5.1) mmol/L Chloride 105 (98-107) mmol/L Carbon Dioxide 25.4 (21.0-32.0) mmol/L BUN 17 (7.0-18.0) mg/dL Creatinine 1.4 H (0.8-1.3) mg/dL Est Cr Clr Drug Dosing 57.74 mL/min Estimated GFR (MDRD) 50.9 ml/min Glucose 105 (74-106) mg/dL Hemoglobin A1c (4.5-6.2) % Calcium 9.1 (8.5-10.1) mg/dL Phosphorus 2.2 L (2.6-4.7) mg/dL Magnesium 2.1 (1.8-2.4) mg/dL Total Bilirubin 0.4 (0.2-1.0) mg/dL AST 19 (15-37) IU/L ALT 49 (14-63) IU/L Alkaline Phosphatase 72 (46-116) U/L Troponin I < 0.050 (0.000-0.056) ng/mL Total Protein 7.2 (6.4-8.2) g/dL Albumin 3.8 (3.4-5.0) g/dL Globulin 3.4 (2.6-4.0) g/dL Albumin/Globulin Ratio 1.1 (0.9-1.6) Triglycerides 121 (0-200) mg/dL Cholesterol 196 (50-200) mg/dL LDL Cholesterol, Calc 137 (60-180) mg/dL VLDL Cholesterol 24 (5-55) mg/dL HDL Cholesterol 35 L (40-60) mg/dL Cholesterol/HDL Ratio 5.6 (3.3-6.0) TSH 3rd Generation 1.73 (0.36-3.74) uIU/mL 08/21/19 Range/Units 11:40 WBC (4.0-11.0) K/uL RBC (4.50-5.90) M/uL Hgb (13.0-17.0) g/dL Hct (38.0-50.0) % MCV (80.0-98.0) fL MCH (27.0-32.0) pg MCHC (31.0-37.0) g/dL RDW Std Deviation (28.0-62.0) fl RDW Coeff of Evaristo (11.0-15.0) % Plt Count (150-400) K/uL MPV (7.40-12.00) fL Neut % (Auto) (48.0-80.0) % Lymph % (Auto) (16.0-40.0) % [place] % (Auto) (0.0-15.0) % Eos % (Auto) (0.0-7.0) % Baso % (Auto) (0.0-1.5) % Neut # (Auto) (1.4-5.7) K/uL Lymph # (Auto) (0.6-2.4) K/uL [place] # (Auto) (0.0-0.8) K/uL Eos # (Auto) (0.0-0.7) K/uL Baso # (Auto) (0.0-0.1) K/uL Nucleated RBC % /100WBC Nucleated RBCs # K/uL Sodium (136-148) mmol/L Potassium (3.5-5.1) mmol/L Chloride (98-107) mmol/L Carbon Dioxide (21.0-32.0) mmol/L BUN (7.0-18.0) mg/dL Creatinine (0.8-1.3) mg/dL Est Cr Clr Drug Dosing mL/min Estimated GFR (MDRD) ml/min Glucose (74-106) mg/dL Hemoglobin A1c 5.7 (4.5-6.2) % Calcium (8.5-10.1) mg/dL Phosphorus (2.6-4.7) mg/dL Magnesium (1.8-2.4) mg/dL Total Bilirubin (0.2-1.0) mg/dL AST (15-37) IU/L ALT (14-63) IU/L Alkaline Phosphatase (46-116) U/L Troponin I (0.000-0.056) ng/mL Total Protein (6.4-8.2) g/dL Albumin (3.4-5.0) g/dL Globulin (2.6-4.0) g/dL Albumin/Globulin Ratio (0.9-1.6) Triglycerides (0-200) mg/dL Cholesterol (50-200) mg/dL LDL Cholesterol, Calc (60-180) mg/dL VLDL Cholesterol (5-55) mg/dL HDL Cholesterol (40-60) mg/dL Cholesterol/HDL Ratio (3.3-6.0) TSH 3rd Generation (0.36-3.74) uIU/mL Result Diagrams: 08/21/19 11:40 08/21/19 11:40 Sepsis Event Note - Evaluation Sepsis Screening Result: No Definite Risk - Focused Exam Vital Signs: Vital Signs Temp Pulse Resp BP Pulse Ox 08/21/19 16:09 150/100 H 08/21/19 15:00 75 16 124/71 100 08/21/19 14:00 76 16 126/78 97 08/21/19 12:58 61 121/79 08/21/19 12:43 100 100 08/21/19 11:59 82 18 146/98 H 100 08/21/19 11:37 96.9 F 84 18 188/101 H 99 Date Exam was Performed: 08/21/19 Time Exam was Performed: 16:28 Problem List Initiated/Reviewed/Updated: Yes Orders Last 24hrs: Active Orders 24 hr Category Date Time Status Admission Status [Patient Status] [ADT] Stat ADT 08/21/19 14:08 Active Antiembolic Devices [RC] PER UNIT ROUTINE Care 08/21/19 14:45 Active EKG Documentation Completion [RC] STAT Care 08/21/19 11:50 Active Orthostatic Vital Signs [RC] ASDIRECTED Care 08/21/19 14:46 Active Oxygen Therapy [RC] PRN Care 08/21/19 14:44 Active Telemetry Monitoring [Cardiac Monitoring] [RC] . Care 08/21/19 14:45 Active DIRECTED Up ad Jennifer [RC] ASDIRECTED Care 08/21/19 14:44 Active VTE/DVT Education [RC] PER UNIT ROUTINE Care 08/21/19 14:44 Active Vital Signs [RC] Q4H Care 08/21/19 14:44 Active PT Evaluation and Treatment [CONS] Routine Cons 08/21/19 14:44 Active Regular Diet [DIET] Diet 08/21/19 Lunch Active CV Carotid Duplex Comp [US] Urgent Exams 08/21/19 15:01 Taken Echo Comp wo Cont [US] Urgent Exams 08/21/19 14:46 Taken CBC WITH AUTO DIFF [HEME] AM Lab 08/22/19 05:11 Ordered CMP [COMPREHENSIVE METABOLIC PN,CMP] [CHEM] AM Lab 08/22/19 05:11 Ordered Acetaminophen [Tylenol] Med 08/21/19 14:44 Active 650 mg PO Q4H PRN Amiodarone [Cordarone] Med 08/22/19 09:00 Ordered 400 mg PO DAILY HCTZ/Triamterene Med 08/22/19 09:00 Ordered 1 cap PO DAILY Ondansetron [Zofran ODT] Med 08/21/19 14:44 Active 4 mg PO Q4H PRN Ondansetron [Zofran] Med 08/21/19 14:44 Active 4 mg IVPUSH Q4H PRN Quinapril HCl [Accupril] Med 08/21/19 21:00 Ordered 40 mg PO BID Sodium Chloride 0.9% [Normal Saline] 1,000 ml Med 08/21/19 14:47 Active IV STAT amLODIPine Med 08/22/19 09:00 Ordered 10 mg PO DAILY Sequential Compression Device [OM.PC] Per Unit Routine Oth 08/21/19 14:44 Ordered Resuscitation Status Routine Resus Stat 08/21/19 14:44 Ordered Medication Orders Acetaminophen (Tylenol) 650 mg PO Q4H PRN PRN Reason: Pain (Mild 1-3)/fever Amiodarone HCl (Cordarone) 400 mg PO DAILY DAT Sodium Chloride (Normal Saline) 1,000 mls @ 120 mls/hr IV STAT ONE Stop: 08/21/19 23:06 Non-Formulary Medication (Amlodipine) 10 mg PO DAILY ADT Non-Formulary Medication (Hctz/Triamterene) 1 cap PO DAILY DAT Non-Formulary Medication (Quinapril Hcl [Accupril]) 40 mg PO BID DAT Ondansetron HCl (Zofran Odt) 4 mg PO Q4H PRN PRN Reason: nausea, able to take PO Ondansetron HCl (Zofran) 4 mg IVPUSH Q4H PRN PRN Reason: Nausea Assessment/Plan Comment:: Assessment and Plan: 1. Near syncope: - Admit to med/surg, keep on telemetry, will order ECHO and carotid u/s. Will check orthostatic vital signs. PT. - Patient is hemodynamically stable and hemoglobin is 11.1. - Patient received 1 L fluid bolus in ER. Will give 1 L of IV NS @ 120 cc/hr. 2. Atrial fibrillation: - Patient on telemetry and currently rate controlled. Continue amiodarone. Xarelto held after recent colonoscopy and GI bleed. Per general surgeon Dr. Mccauley, Xarelto to be held until 08/26/19. 3. Past medical history of HTN and hyperlipidemia: - Resume home medications. 4. DVT prophylaxis: SCD's.
[2019-08-21] MEDS ORDERED: Potassium Chloride 20 MEQ Tab.ER PO ONE (18:11)
[2019-08-21] MEDS: Phosphorus #1 250 MG Tab PO SCH ×2 (19:25→23:32)
[2019-08-21] MEDS ORDERED: Docusate Sodium 100 MG Cap PO PRN (21:34)
[2019-08-22] MEDS ORDERED: Calcium Carbonate 500 MG Tab.Chew PO ONE (00:31)
[2019-08-22] MEDS: Phosphorus #1 250 MG Tab PO SCH (06:39)
[2019-08-22 07:19] LABS: CARBON DIOXIDE,CO2 26.8 mmol/L (21.0-32.0); POTASSIUM,K 3.7 mmol/L (3.5-5.1)
[2019-08-22] MEDS ORDERED: Amiodarone 200 MG Tab PO SCH (09:00)
[2019-08-22] MEDS ORDERED: Hydrochlorothiazide/Triamterene 25-37.5 Tab PO SCH (09:00)
[2019-08-22] MEDS ORDERED: amLODIPine 5 MG Tab PO SCH (09:00)
[2019-08-22] MEDS ORDERED: Calcium Carbonate 500 MG Tab.Chew PO PRN (09:03)
--- NOTE | 2019-08-22 13:18 | PCM.DCSUM1 ---
Discharge Summary - Hospital Course Free Text/Narrative:: 63-year-old male admitted for near-syncope. He has a PMH of atrial fibrillation , HTN, hyperlipidemia and recent GI bleed. Orthostatic vital signs negative. CXR and CT head were negative. ECHO and carotid ultrasound currently pending. No reported events overnight on telemetry. Patient hemodynamically stable throughout hospitalization. IWONA on admission was treated with IV fluids. Per physical therapy patient did exhibit signs of BPPV and was treated with Eusebia maneuver. He was shown how to preform Eusebia maneuver at home on his own. Patient 's xarelto was held during prior admission for GI bleed and patient will be following-up with his cq developer next week prior to resuming xarelto per his cq developer. Also advised to follow-up with PCP. Patient discharged in stable condition. - Discharge Data Discharge Date: 08/22/19 Discharge Disposition: Home, Self-Care 01 Condition: Stable - Referral to Home Health Primary Care Physician: PCP Unobtainable - Patient Summary/Data Consults: Consultations 08/21/19 14:44 PT Evaluation and Treatment [CONS] Routine - Patient Instructions Diet: Usual Diet as Tolerated Activity: As Tolerated Notify Provider of: Fever, Increased Pain, Swelling and Redness, Drainage, Nausea and/or Vomiting - Discharge Plan *PRESCRIPTION DRUG MONITORING PROGRAM REVIEWED*: Not Applicable *COPY OF PRESCRIPTION DRUG MONITORING REPORT IN PATIENT TRISHA: Not Applicable Home Medications: Home Meds Amiodarone [Cordarone] 400 mg PO DAILY 03/20/19 [History] Triamterene/Hydrochlorothiazid [Triamterene-HCTZ 37.5-25 MG] 1 cap PO DAILY [History] amLODIPine Besylate [Norvasc] 10 mg PO DAILY 03/24/19 [History] Quinapril HCl [Accupril] 40 mg PO BID 08/07/19 [History] Oxygen Therapy Mode: Room Air Patient Handouts: Near-Syncope, [id number] Referrals: Eliseo Coleman MD [Physician] - - Discharge Summary/Plan Comment DC Time >30 min.: No - Patient Data Vitals - Most Recent: Last Vital Signs Temp 98.6 F 08/22/19 08:00 Pulse 74 08/22/19 08:00 Resp 18 08/22/19 08:00 BP 124/76 08/22/19 09:48 Pulse Ox 96 08/22/19 08:00 Orthostatic Blood Pressure [ 126/78 Standing] Orthostatic Blood Pressure [ 136/90 Sitting] Orthostatic Blood Pressure [ 143/85 Supine] Weight - Most Recent: 270 lb 8 oz I&O - Last 24 hours: Intake & Output 08/21/19 08/22/19 08/22/19 22:59 06:59 14:59 Intake Total 1000 Balance 1000 Lab Results - Last 24 hrs: Laboratory Results - last 24 hr 08/21/19 08/21/19 08/21/19 Range/Units 11:40 11:40 12:47 WBC (4.0-11.0) K/uL RBC (4.50-5.90) M/uL Hgb (13.0-17.0) g/dL Hct (38.0-50.0) % MCV (80.0-98.0) fL MCH (27.0-32.0) pg MCHC (31.0-37.0) g/dL RDW Std Deviation (28.0-62.0) fl RDW Coeff of Evaristo (11.0-15.0) % Plt Count (150-400) K/uL MPV (7.40-12.00) fL Neut % (Auto) (48.0-80.0) % Lymph % (Auto) (16.0-40.0) % [place] % (Auto) (0.0-15.0) % Eos % (Auto) (0.0-7.0) % Baso % (Auto) (0.0-1.5) % Neut # (Auto) (1.4-5.7) K/uL Lymph # (Auto) (0.6-2.4) K/uL [place] # (Auto) (0.0-0.8) K/uL Eos # (Auto) (0.0-0.7) K/uL Baso # (Auto) (0.0-0.1) K/uL Nucleated RBC % /100WBC Nucleated RBCs # K/uL Sodium (136-148) mmol/L Potassium (3.5-5.1) mmol/L Chloride (98-107) mmol/L Carbon Dioxide (21.0-32.0) mmol/L BUN (7.0-18.0) mg/dL Creatinine (0.8-1.3) mg/dL Est Cr Clr Drug Dosing mL/min Estimated GFR (MDRD) ml/min Glucose (74-106) mg/dL Hemoglobin A1c 5.7 (4.5-6.2) % Calcium (8.5-10.1) mg/dL Phosphorus 2.2 L (2.6-4.7) mg/dL Magnesium (1.8-2.4) mg/dL Total Bilirubin (0.2-1.0) mg/dL AST (15-37) IU/L ALT (14-63) IU/L Alkaline Phosphatase (46-116) U/L Total Protein (6.4-8.2) g/dL Albumin (3.4-5.0) g/dL Globulin (2.6-4.0) g/dL Albumin/Globulin Ratio (0.9-1.6) Triglycerides 121 (0-200) mg/dL Cholesterol 196 (50-200) mg/dL LDL Cholesterol, Calc 137 (60-180) mg/dL VLDL Cholesterol 24 (5-55) mg/dL HDL Cholesterol 35 L (40-60) mg/dL Cholesterol/HDL Ratio 5.6 (3.3-6.0) TSH 3rd Generation 1.73 (0.36-3.74) uIU/mL Urine Color YELLOW Urine Appearance CLEAR Urine pH 7.0 (5.0-8.0) Ur Specific [place] 1.010 (1.001-1.035) Urine Protein NEGATIVE (NEGATIVE) mg/dL Urine Glucose (UA) NEGATIVE (NEGATIVE) mg/dL Urine Ketones NEGATIVE (NEGATIVE) mg/dL Urine Occult Blood NEGATIVE (NEGATIVE) Urine Nitrite NEGATIVE (NEGATIVE) Urine Bilirubin NEGATIVE (NEGATIVE) Urine Urobilinogen 0.2 (<2.0) EU/dL Ur Leukocyte Esterase NEGATIVE (NEGATIVE) 08/22/19 08/22/19 Range/Units 06:40 06:40 WBC 9.94 (4.0-11.0) K/uL RBC 3.29 L (4.50-5.90) M/uL Hgb 9.4 L (13.0-17.0) g/dL Hct 29.2 L (38.0-50.0) % MCV 88.8 (80.0-98.0) fL MCH 28.6 (27.0-32.0) pg MCHC 32.2 (31.0-37.0) g/dL RDW Std Deviation 50.0 (28.0-62.0) fl RDW Coeff of Evaristo 16 H (11.0-15.0) % Plt Count 349 (150-400) K/uL MPV 10.00 (7.40-12.00) fL Neut % (Auto) 72.1 (48.0-80.0) % Lymph % (Auto) 14.2 L (16.0-40.0) % [place] % (Auto) 11.9 (0.0-15.0) % Eos % (Auto) 1.6 (0.0-7.0) % Baso % (Auto) 0.2 (0.0-1.5) % Neut # (Auto) 7.2 H (1.4-5.7) K/uL Lymph # (Auto) 1.4 (0.6-2.4) K/uL [place] # (Auto) 1.2 H (0.0-0.8) K/uL Eos # (Auto) 0.2 (0.0-0.7) K/uL Baso # (Auto) 0.0 (0.0-0.1) K/uL Nucleated RBC % 0.0 /100WBC Nucleated RBCs # 0 K/uL Sodium 143 (136-148) mmol/L Potassium 3.7 (3.5-5.1) mmol/L Chloride 108 H (98-107) mmol/L Carbon Dioxide 26.8 (21.0-32.0) mmol/L BUN 13 (7.0-18.0) mg/dL Creatinine 1.3 (0.8-1.3) mg/dL Est Cr Clr Drug Dosing 62.18 mL/min Estimated GFR (MDRD) 55.4 ml/min Glucose 94 (74-106) mg/dL Hemoglobin A1c (4.5-6.2) % Calcium 8.3 L (8.5-10.1) mg/dL Phosphorus 3.3 (2.6-4.7) mg/dL Magnesium 2.1 (1.8-2.4) mg/dL Total Bilirubin 0.4 (0.2-1.0) mg/dL AST 19 (15-37) IU/L ALT 42 (14-63) IU/L Alkaline Phosphatase 64 (46-116) U/L Total Protein 6.0 L (6.4-8.2) g/dL Albumin 3.1 L (3.4-5.0) g/dL Globulin 2.9 (2.6-4.0) g/dL Albumin/Globulin Ratio 1.1 (0.9-1.6) Triglycerides (0-200) mg/dL Cholesterol (50-200) mg/dL LDL Cholesterol, Calc (60-180) mg/dL VLDL Cholesterol (5-55) mg/dL HDL Cholesterol (40-60) mg/dL Cholesterol/HDL Ratio (3.3-6.0) TSH 3rd Generation (0.36-3.74) uIU/mL Urine Color Urine Appearance Urine pH (5.0-8.0) Ur Specific [place] (1.001-1.035) Urine Protein (NEGATIVE) mg/dL Urine Glucose (UA) (NEGATIVE) mg/dL Urine Ketones (NEGATIVE) mg/dL Urine Occult Blood (NEGATIVE) Urine Nitrite (NEGATIVE) Urine Bilirubin (NEGATIVE) Urine Urobilinogen (<2.0) EU/dL Ur Leukocyte Esterase (NEGATIVE) Med Orders - Current: Current Medications Acetaminophen (Tylenol) 650 mg PO Q4H PRN PRN Reason: Pain (Mild 1-3)/fever Amiodarone HCl (Cordarone) 400 mg PO DAILY [facility] Last Admin: 08/22/19 09:48 Dose: 400 mg Amlodipine Besylate (Norvasc) 10 mg PO DAILY [facility] Last Admin: 08/22/19 09:48 Dose: 10 mg Calcium Carbonate/Glycine (Tums) 500 mg PO Q8H PRN PRN Reason: Indigestion Last Admin: 08/22/19 09:48 Dose: 500 mg Docusate Sodium (Colace) 100 mg PO DAILY PRN PRN Reason: Constipation Last Admin: 08/21/19 22:24 Dose: 100 mg Ondansetron HCl (Zofran Odt) 4 mg PO Q4H PRN PRN Reason: nausea, able to take PO Ondansetron HCl (Zofran) 4 mg IVPUSH Q4H PRN PRN Reason: Nausea Quinapril HCl (Accupril) 40 mg PO BID [facility] Last Admin: 08/22/19 09:48 Dose: 40 mg Triamterene/HCTZ (Maxzide 25-37.5 Mg) 1 each PO DAILY [facility] Last Admin: 08/22/19 09:48 Dose: 1 each Discontinued Medications Calcium Carbonate/Glycine (Tums) 1,000 mg PO ONETIME ONE Stop: 08/22/19 00:32 Last Admin: 08/22/19 01:08 Dose: 1,000 mg Sodium Chloride (Normal Saline) 1,000 mls @ 999 mls/hr IV .Bolus ONE Stop: 08/21/19 12:51 Last Admin: 08/21/19 11:58 Dose: 999 mls/hr Sodium Chloride (Normal Saline) 1,000 mls @ 120 mls/hr IV STAT ONE Stop: 08/21/19 23:06 Last Admin: 08/21/19 17:35 Dose: 120 mls/hr Potassium Chloride (Klor-Con M20) 40 meq PO ONETIME ONE Stop: 08/21/19 18:12 Last Admin: 08/21/19 19:24 Dose: 40 meq Sodium Phosphate (Neutra-Phos) 250 mg PO QID [facility] Last Admin: 08/22/19 06:39 Dose: 250 mg
--- NOTE | 2019-08-24 15:55 | US ---
Carotid ultrasound: Multiple real-time images were obtained. Plaque: No plaque is appreciated. Comparison: No previous carotid imaging is available. Findings: Velocity measurements: Right side: CCA has a peak systolic velocity of 1.28 m/s. ICA has a peak systolic velocity of 0.93 m/s and peak end-diastolic velocity of 0.41 m/s. ECA has a peak systolic velocity of 0.74 m/s. Vertebral artery has a peak systolic velocity of 0.64 m/s. ICA/CCA ratio is 1.05. Left side: CCA has a peak systolic velocity of 1.13 m/s. ICA has a peak systolic velocity of 0.92 m/s and peak end-diastolic velocity of 0.39 m/s. ECA has a peak systolic velocity of 0.81 m/s. Vertebral artery has a peak systolic velocity of 0.78 m/s. ICA/CCA ratio is 1.06. Impression: 1. No abnormality is identified on Cardiolite portion of cardiac stress test. Diagnostic code #1 This report was dictated in MDT
== END 2019-08-22 10:00 | disposition home or self-care (01) ==
LOC: MW.ED 11:32 → MW.MS 14:08 → UNDOADMOB 14:08 → MW.MS 15:54
PROVIDERS: ADMIT Student in an Organized Health Care Education/Training Program; ATTEND Student in an Organized Health Care Education/Training Program
DX: R55 Syncope and collapse (principal); I48.91 Unspecified atrial fibrillation; I10 Essential (primary) hypertension; E78.5 Hyperlipidemia, unspecified; E66.9 Obesity, unspecified; E78.00 Pure hypercholesterolemia, unspecified; Z91.013 Allergy to seafood; Z79.899 Other long term (current) drug therapy; Z68.36 Body mass index [BMI] 36.0-36.9, adult
CPT/HCPCS: 36415; 70450; 71045; 80053; 80061; 81003; 83036; 83735; 84100; 84443; 84484; 85025; 93005; 93306; 93880; 95992; 96360; 97161; 99285; A9270; J7030; 96361; G0378

== ENCOUNTER 2020-09-23 07:51 | Emergency (ER) | payer MEDICARE, OTHER ==
[2020-09-23] MEDS ORDERED: Morphine 4 MG/ML Syringe IVPUSH ONE (08:21)
[2020-09-23] MEDS ORDERED: Ondansetron 4 MG/2 ML SDV IVPUSH ONE (08:32)
--- NOTE | 2020-09-23 08:32 | EDM.PDOC ---
ED HPI GENERAL MEDICAL PROBLEM - General Chief Complaint: Abdominal Pain Stated Complaint: GALL BLADDER ATTACK Time Seen by Provider: 09/23/20 07:59 - History of Present Illness INITIAL COMMENTS - FREE TEXT/NARRATIVE: CHIEF COMPLAINT(S): "I think I am having a gallbladder attack." HISTORY OF PRESENT ILLNESS: This is a 64-year-old man with a past medical history of atrial fibrillation not on anticoagulation who comes to the emergency department with a chief complaint of "I think I am having a gallbladder attack." The patient states that approximately 4 days ago at approximately 1 in the morning he started to develop right upper quadrant and right-sided chest wall pain that lasted approximately 1 hour. He states that this pain is dull and rated 6 out of 10 when it happens. He states that it resolved after approximat светлана 1 hour and then reoccurred each night with these episodes lasting a little bit longer. He denies any chest pain or shortness of breath, syncope, diaphoresis, diarrhea. He states that this pain is not associated with eating. He states that yesterday he did not have any episodes however last night it started to get worse and it has stayed constant since that time. He states that he took an oxycodone at home which did not seem to help the pain. He cannot identify any aggravating factors. He denies any radiation of the pain. He denies any lower extremity edema, recent travel, recent surgery or prior history of DVT or PE. He denies any history of aortic aneurysm. REVIEW OF SYSTEMS: Constitutional: Denies fever, chills. Eyes: Denies eye pain Ears, Nose, Mouth, & Throat: Denies earache Cardiovascular: Positive for right-sided chest pain. Respiratory: Denies shortness of breath Gastrointestinal: Positive for right upper quadrant abdominal pain. Denies nausea, vomiting, diarrhea, hematochezia, hematemesis, bilious emesis 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: Denies hematuria, dysuria, penile discharge, testicular pain Skin:Denies a rash MSK: Denies joint pain Neurological: Denies blurred vision, numbness, tingling, weakness Psychiatric: Denies depression PAST MEDICAL HISTORY: As per history of present illness and as reviewed below otherwise noncontributory. SURGICAL HISTORY: As per history of present illness and as reviewed below otherwise noncontributory. SOCIAL HISTORY: As per history of present illness and as reviewed below otherwise noncontributory. FAMILY HISTORY: As per history of present illness and as reviewed below otherwise noncontributory. EXAMINATION OF ORGAN SYSTEMS/BODY AREAS: Constitutional: Blood pressure is 124/73, heart rate 78, respiratory 16 with an oxygen saturation 96% on room air. Temperature 36.1 General: Obese gentleman who does not appear to be any acute distress. Psychiatric: Appropriate mood and affect. Eyes: No scleral icterus or conjunctival erythema ENMT: Moist mucous membranes. No pharyngeal erythema Cardiovascular: Regular, rate, and rhythm. No gallops, murmurs, or rubs. Bilateral upper extremity pulses symmetric and intact. No peripheral edema. No JVD. There is right-sided chest wall pain along the ribs posteriorly to the parathoracic muscle area. Respiratory: Lungs clear to auscultation bilaterally. No wheezes, rales, or rhonchi. Gastrointestinal: Soft, obese abdomen, tenderness to palpation in the epigastric and right upper quadrant region. No rebound or guarding. Negative McBurney's point. Normoactive bowel sounds 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: No suprapubic tenderness Musculoskeletal: Normal range of motion. Skin: No lesions or abrasions. Neurological: Alert, GCS 15 MEDICAL DECISION MAKING AND COURSE IN THE ED WITH INTERPRETATION/REVIEW OF DIAGNOSTIC STUDIES: This is a 64-year-old male with a past medical history of atrial fibrillation not on anticoagulation who comes to the emergency department with acute recurrent right upper quadrant and right-sided chest wall pain with some epigastric and right upper quadrant tenderness on examination who has stable vital signs. At this time differential does include pneumonia, cholecystitis, pancreatitis. Will obtain labs including CBC, CMP, lipase and urinalysis. Will obtain a screening EKG and obtain a chest x-ray. We will provide the patient with 4 mg of IV morphine. We also obtain a CT abdomen pelvis with contrast and a right upper quadrant ultrasound. Time: 0825 Twelve-lead EKG interpreted by myself. Normal sinus rhythm at a rate of 78beats per minute. Normal axis. SC interval is 195ms. QRS duration is 97ms. ST segments are normal without elevations or depressions. No T wave inversions no Q waves present. Hypertrophy not noted. No changes demonstrated from prior EKG dated August 21, 2019. Interpretation: Sinus rhythm Laboratory: CBC reveals a mild leukocytosis of 14.17 with neutrophilic predominance without any left shift. CMP reveals hypokalemia at 3.3 and elevated BUN at 25 and creatinine 1.8, hyperglycemia at 133 otherwise unremarkable. Lipase is normal. Urinalysis was a clean catch and was negative for leukocyte esterase, negative for nitrites, and negative for blood. Interpretation: Negative. The radiological images were viewed by myself along with reading the report from the radiologist. Chest x-ray reveals cardiomegaly without any pulmonary vascular congestion otherwise no acute cardiopulmonary process. Abdominal ultrasound of the right upper quadrant reveals fatty liver with small hepatic cyst. No evidence of cholelithiasis or biliary ductal dilation. CT abdomen pelvis with contrast reveals fatty infiltration of the liver and small hepatic cyst. There is diverticulosis without diverticulitis. On reevaluation I did discuss the results with the patient. At this time I did discuss that he has some evidence of acute kidney injury and encourage the patient to continue with fluid hydration. I did provide the patient with potassium supplementation by mouth. At this time the patient's pain was similar but it was tenderness on palpation along the chest wall and a wraparound fashion. I discussed that given all the results are negative I do suspect this is likely superficial musculoskeletal pain. I did discuss treatment options with him. I encouraged the patient to follow-up with his primary care phys karlo. He is to return for any new or worsening symptoms. He was amenable to discharge at this time and had no further questions. DISPOSITION: The patient was discharged home in stable condition. The patient will follow up with primary care physician within 3 to 5 days CONDITION: Fair PROCEDURES: None FINAL IMPRESSION(S)/DIAGNOSES: 1. Acute chest wall pain 2. Acute abdominal pain Alex Johnson M.D. middle upper abdomen Pain Score (Numeric/FACES): 6 - Related Data Allergies Allergy/AdvReac Type Severity Reaction Status Date / Time shrimp Allergy Hives Verified 09/23/20 08:12 Home Meds: Home Meds Amiodarone [Cordarone] 400 mg PO DAILY 03/20/19 [History] Triamterene/Hydrochlorothiazid [Triamterene-HCTZ 37.5-25 MG] 1 cap PO DAILY 03/20/19 [History] amLODIPine Besylate [Norvasc] 10 mg PO DAILY 03/24/19 [History] Quinapril HCl [Accupril] 40 mg PO BID 08/07/19 [History] methocarbamoL [Robaxin] 1,500 mg PO TID #42 tab 09/23/20 [Rx] Past Medical History HEENT History: Reports: Impaired Vision, Other (See Below) Other HEENT History: top partial, glasses Cardiovascular History: Reports: Afib, High Cholesterol, Hypertension Respiratory History: Reports: None Gastrointestinal History: Reports: Other (See Below) Other Gastrointestinal History: occasional heartburn 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 History: Reports: None 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: Musculoskeletal History: Reports: Fracture, Osteoarthritis, Other (See Below) Other Musculoskeletal History: hx fx collarbone, hand Neurological History: Reports: None Psychiatric History: Reports: None Endocrine/Metabolic History: Reports: Obesity/BMI 30+ Hematologic History: Reports: None Immunologic History: Reports: None Oncologic (Cancer) History: Reports: None Dermatologic History: Reports: None - Infectious Disease History Infectious Disease History: Reports: Chicken Pox, Measles, Mumps - Past Surgical History Head Surgeries/Procedures: Reports: None HEENT Surgical History: Reports: Naso-Sinus Surgery, Tonsillectomy Cardiovascular Surgical History: Reports: Other (See Below) Other Cardiovascular Surgeries/Procedures: cardioversion x4 Respiratory Surgical History: Reports: None GI Surgical History: Reports: Appendectomy Other GI Surgeries/Procedures: GI Bleed- Recent Male Surgical History: Reports: None Endocrine Surgical History: Reports: None Neurological Surgical History: Reports: None Musculoskeletal Surgical History: Reports: Carpal Tunnel, Knee Replacement Oncologic Surgical History: Reports: None Dermatological Surgical History: Reports: None - History Comment History Comment: no xarelto sat and saturday Social & Family History - Family History Family Medical History: No Pertinent Family History - Caffeine Use Caffeine Use: Reports: None - Recreational Drug Use Recreational Drug Use: No ED ROS GENERAL - Review of Systems Review Of Systems: See Below ED EXAM, GI/ABD - Physical Exam Exam: See Below Course - Vital Signs Last Recorded V/S: Last Vital Signs Temp 36.1 C 09/23/20 08:09 Pulse 81 09/23/20 10:21 Resp 16 09/23/20 10:21 BP 147/87 H 09/23/20 10:21 Pulse Ox 93 L 09/23/20 10:21 - Orders/Labs/Meds Labs: Laboratory Tests 09/23/20 09/23/20 09/23/20 Range/Units 08:22 08:22 10:41 WBC 14.17 H (4.0-11.0) K/uL RBC 5.63 (4.50-5.90) M/uL Hgb 15.9 (13.0-17.0) g/dL Hct 48.1 (38.0-50.0) % MCV 85.4 (80.0-98.0) fL MCH 28.2 (27.0-32.0) pg MCHC 33.1 (31.0-37.0) g/dL RDW Std Deviation 46.1 (28.0-62.0) fl RDW Coeff of Evaristo 15 (11.0-15.0) % Plt Count 273 (150-400) K/uL MPV 11.00 (7.40-12.00) fL Neut % (Auto) 88.8 H (48.0-80.0) % Lymph % (Auto) 3.9 L (16.0-40.0) % Ashley % (Auto) 7.2 (0.0-15.0) % Eos % (Auto) 0.0 (0.0-7.0) % Baso % (Auto) 0.1 (0.0-1.5) % Neut # (Auto) 12.6 H (1.4-5.7) K/uL Lymph # (Auto) 0.6 (0.6-2.4) K/uL Ashley # (Auto) 1.0 H (0.0-0.8) K/uL Eos # (Auto) 0.0 (0.0-0.7) K/uL Baso # (Auto) 0.0 (0.0-0.1) K/uL Nucleated RBC % 0.0 /100WBC Nucleated RBCs # 0 K/uL Sodium 139 (136-148) mmol/L Potassium 3.3 L (3.5-5.1) mmol/L Chloride 102 (98-107) mmol/L Carbon Dioxide 26.9 (21.0-32.0) mmol/L BUN 25 H (7.0-18.0) mg/dL Creatinine 1.8 H (0.8-1.3) mg/dL Est Cr Clr Drug Dosing 44.31 mL/min Estimated GFR (MDRD) 37.9 ml/min Glucose 133 H (74-106) mg/dL Calcium 9.2 (8.5-10.1) mg/dL Magnesium 2.1 (1.8-2.4) mg/dL Total Bilirubin 0.8 (0.2-1.0) mg/dL AST 18 (15-37) IU/L ALT 48 (14-63) IU/L Alkaline Phosphatase 79 (46-116) U/L Total Protein 7.9 (6.4-8.2) g/dL Albumin 3.9 (3.4-5.0) g/dL Globulin 4.0 (2.6-4.0) g/dL Albumin/Globulin Ratio 1.0 (0.9-1.6) Lipase 72 L (73-393) U/L Urine Color YELLOW Urine Appearance CLEAR Urine pH 6.5 (5.0-8.0) Ur Specific [place] 1.010 (1.001-1.035) Urine Protein NEGATIVE (NEGATIVE) mg/dL Urine Glucose (UA) NEGATIVE (NEGATIVE) mg/dL Urine Ketones NEGATIVE (NEGATIVE) mg/dL Urine Occult Blood NEGATIVE (NEGATIVE) Urine Nitrite NEGATIVE (NEGATIVE) Urine Bilirubin NEGATIVE (NEGATIVE) Urine Urobilinogen 0.2 (<2.0) EU/dL Ur Leukocyte Esterase NEGATIVE (NEGATIVE) Meds: Medications Discontinued Medications Generic Name Dose Route Start Last Admin Trade Name Cecilio PRN Reason Stop Dose Admin Hydromorphone HCl 0.5 mg 09/23/20 10:30 09/23/20 10:39 Hydromorphone 1 Mg/Ml Syringe IVPUSH 09/23/20 10:31 0.5 mg ONETIME ONE Administration Lactated Ringer's 1,000 mls @ 999 mls/hr 09/23/20 08:39 09/23/20 08:39 Ringers, Lactated IV 09/23/20 09:39 999 mls/hr .BOLUS ONE Administration Iopamidol 100 ml 09/23/20 09:21 09/23/20 09:21 Iopamidol 755 Mg/Ml 500 Ml Multipack Bottle IVPUSH 09/23/20 09:22 100 ml ONETIME ONE Administration Morphine Sulfate 4 mg 09/23/20 08:21 09/23/20 08:25 Morphine 4 Mg/Ml Syringe IVPUSH 09/23/20 08:22 4 mg ONETIME ONE Administration Ondansetron HCl 4 mg 09/23/20 08:32 09/23/20 08:39 Ondansetron 4 Mg/2 Ml Sdv IVPUSH 09/23/20 08:33 4 mg ONETIME ONE Administration Potassium Chloride 40 meq 09/23/20 10:12 09/23/20 10:20 Potassium Chloride 10% 20 Meq/15 Ml Soln 30 Ml Ud Cup PO 09/23/20 10:13 40 meq ONETIME ONE Administration Departure - Departure Time of Disposition: 11:38 Disposition: Home, Self-Care 01 Condition: Fair Clinical Impression: Abdominal pain, Muscle strain of anterior chest wall - Discharge Information *PRESCRIPTION DRUG MONITORING PROGRAM REVIEWED*: No *COPY OF PRESCRIPTION DRUG MONITORING REPORT IN PATIENT TRISHA: No Prescriptions: methocarbamoL [Robaxin] 1,500 mg PO TID #42 tab Instructions: Muscle Strain, [id number], Abdominal Pain, Adult, [id number], Thoracic Strain, [id number] Referrals: PCP,None [Primary Care Provider] - Forms: ED Department Discharge Additional Instructions: You evaluate today on an emergent basis. At this time your work-up was negative. I do recommend that you use Voltaren cream to the affected area 4 times a day and use Tylenol 4 times a day. You can use ice or alternate with heat 20 minutes 4 times a day. If you have any worsening symptoms such as chest pain, passing out, vomiting, blood in stool please return to the emergency department. [facility] - Primary [facility] [address] [place] [address] [place] [address] Please use: Tylenol 500-1000mg every 6 hours (DO NOT TAKE MORE THAN 4000mg in 1 day) In addition to Tylenol you may use over the counter creams such as Voltaren Cream or Lidocaine Cream (Lidoderm) as needed 4 times a day for symptomatic relief. Ice the area 20 minutes 4 times per day The patient is informed of any results of their evaluation and diagnostic workup and all questions are answered. They are given discharge instructions and return precautions. The patient is stable for discharge. The patient states they understand and agree with the plan and that they will return if their symptoms get worse or if they have any new concerns. The following information is given to patients seen in the emergency department who are being discharged to home. This information is to outline your options for follow-up care. We provide all patients seen in our emergency department with a follow-up referral. The need for follow-up, as well as the timing and circumstances, are variable depending upon the specifics of your emergency department visit. If you don't have a primary care physician on staff, we will provide you with a referral. We always advise you to contact your personal physician following an emergency department visit to inform them of the circumstance of the visit and for follow-up with them and/or the need for any referrals to a consulting specialist. The emergency department will also refer you to a specialist when appropriate. This referral assures that you have the opportunity for follow-up care with a specialist. All of these measure are taken in an effort to provide you with optimal care, which includes your follow-up. Under all circumstances we always encourage you to contact your private physician who remains a resource for coordinating your care. When calling for follow-up care, please make the office aware that this follow-up is from your recent emergency room visit. If for any reason you are refused follow-up, please contact the [facility] Emergency Department at and asked to speak to the emergency department charge nurse. Sepsis Event Note (ED) - Evaluation Sepsis Screening Result: No Definite Risk
[2020-09-23] MEDS ORDERED: Lactated Ringers 1,000 ML IV ONE (08:39)
--- NOTE | 2020-09-23 09:07 | CR ---
INDICATION: Right-sided chest pain. TECHNIQUE: Single view. COMPARISON: 08/21/2019. FINDINGS: There is stable cardiomegaly. There is no acute infiltrate. No significant pleural fluid is seen. No evidence for pulmonary edema. IMPRESSION: Stable cardiomegaly. No significant infiltrate or pulmonary edema is seen. Dictated by Homero Lazaro MD @ 09/23/2020 9:05:[address] Homero Lazaro @ Sep 23 2020 9:05AM
[2020-09-23 09:08] LABS: CARBON DIOXIDE,CO2 26.9 mmol/L (21.0-32.0); POTASSIUM,K 3.3 mmol/L (3.5-5.1)
[2020-09-23] MEDS ORDERED: Iopamidol 755 MG/ML 500 ML Multipack Bottle IVPUSH ONE (09:21)
--- NOTE | 2020-09-23 09:34 | US ---
INDICATION: Right upper quadrant abdominal pain. TECHNIQUE: Ultrasound examination of the right upper quadrant of the abdomen. FINDINGS: Diffuse increase in echogenicity of the liver; rule out fatty infiltration. Small hepatic cysts. No focal hepatic pathology. No evidence of cholelithiasis. Nondilated common bile duct measuring 2 mm in diameter. No pericholecystic fluid collections. Negative sonographic Metz`s sign. No pancreatic pathology. Right kidney is measuring 11.8 x 6 x 4 cm without any obstructive uropathy or perinephric pathology. No evidence of abdominal ascites. IMPRESSION: 1. Fatty liver. 2. Small hepatic cysts. 3. No evidence of cholelithiasis or biliary duct dilatation. Dictated by Melinda Starks MD @ 09/23/2020 9:33:[address] Melinda Starks @ Sep 23 2020 9:33AM
--- NOTE | 2020-09-23 09:53 | CT ---
INDICATION: Epigastric and right upper quadrant abdominal pain. COMPARISON: Ultrasound examination of the right upper quadrant of the abdomen September 23, 2020. TECHNIQUE: CT abdomen and pelvis with intravenous contrast ; Coronal and sagittal reformats. FINDINGS: No abnormal intra pulmonary nodular densities through the lung bases. No evidence of pleural effusion. Normal size cardiac silhouette without any evidence of pericardial effusion . Mild diffuse fatty infiltration of the liver. Several hepatic cysts . No splenic pathology. No pancreatic pathology. No peripancreatic inflammatory changes. No evidence of pancreatic ductal dilatation. Gallbladder is unremarkable. No adrenal pathology. No kidney stones or obstructive uropathy. No retroperitoneal lymphadenopathy. No evidence of abdominal or pelvic ascites. No pneumoperitoneum or intestinal obstruction . Enlarged prostate gland. Diverticulosis sigmoid colon without any CT evidence of diverticulitis or abscess. IMPRESSION: 1. Fatty infiltration of the liver. 2. Several small hepatic cysts. 3. Enlarged prostate gland. 4. Diverticulosis sigmoid colon without any CT evidence of diverticulitis or abscess. 5. Negative CT abdomen and pelvis with intravenous contrast otherwise. Please note that all CT scans at this facility use dose modulation, iterative reconstruction, and/or weight-based dosing when appropriate to reduce radiation dose to as low as reasonably achievable. Dictated by Melinda Starks MD @ 09/23/2020 9:51:[address] Melinda Starks @ Sep 23 2020 9:51AM
[2020-09-23] MEDS ORDERED: Potassium Chloride 10% 20 MEQ/15 ML Soln 30 ML UD Cup PO ONE (10:12)
[2020-09-23] MEDS ORDERED: HYDROmorphone 1 MG/ML Syringe IVPUSH ONE (10:30)
== END 2020-09-23 11:48 | disposition home or self-care (01) ==
LOC: MW.ED 07:51
DX: S29.011A Strain of muscle and tendon of front wall of thorax, initial encounter (principal); R10.11 Right upper quadrant pain; E78.00 Pure hypercholesterolemia, unspecified; I10 Essential (primary) hypertension; E66.9 Obesity, unspecified; Z68.33 Body mass index [BMI] 33.0-33.9, adult; Z91.013 Allergy to seafood; X58.XXXA Exposure to other specified factors, initial encounter
CPT/HCPCS: 71045; 74177; 76705; 80053; 81003; 83690; 83735; 85025; 93005; 96374; 96375; 99285; A9270; J1170; J2270; J2405; J7120; Q9967; 93010; 99284

== ENCOUNTER 2024-05-28 02:18 | Emergency (ER) | payer MEDICARE, OTHER | END 2024-05-28 03:40 | disposition home or self-care (01) | LOC: MW.ED 02:18 | DX: Z00.00 Encounter for general adult medical examination without abnormal findings (principal); I10 Essential (primary) hypertension; E66.9 Obesity, unspecified; Z91.013 Allergy to seafood; Z79.899 Other long term (current) drug therapy; Z90.49 Acquired absence of other specified parts of digestive tract; Z68.34 Body mass index [BMI] 34.0-34.9, adult | CPT/HCPCS: 99283 ==